=== PATIENT | male | born 1935 | race Caucasian/White ===

== ENCOUNTER 2017-02-20 22:07 | Inpatient (IN) ==
[2017-02-21] MEDS ORDERED: *HR* Morphine 2 MG/ML SYRINGE IVP PRN (03:36)
[2017-02-21] MEDS ORDERED: Acetaminophen 325 MG TABLET PO PRN (03:36)
[2017-02-21] MEDS ORDERED: Naloxone 0.4 MG/ML INJ IVP PRN (03:36)
[2017-02-21] MEDS ORDERED: Ondansetron 4 MG/2 ML VIAL IVP PRN (03:36)
[2017-02-21] MEDS ORDERED: *HR* Heparin 5,000 UNIT/ML VIAL IVP ONE (03:44)
[2017-02-21] MEDS ORDERED: *HR* Heparin 5,000 UNIT/ML VIAL IVP PRN ×2 (03:44)
[2017-02-21] MEDS ORDERED: Heparin 25,000 UNIT/500 ML D5W 25,000 UNIT/500 ML MLS IVC SCH (03:45)
[2017-02-21 04:02] LABS: Albumin 2.6 g/dL (3.5-5.0); Bilirubin,Total 0.6 mg/dL (0.2-1.2); Calcium 8.5 mg/dL (8.6-10.8); Globulin 2.6 g/dL (2.4-3.5); Magnesium 1.9 mg/dL (1.6-2.6); Potassium 4.1 mEq/L (3.5-4.5); Total Protein 5.2 g/dL (6.0-8.3)
[2017-02-21 04:19] LABS: Basophils % 0.4 %; Eosinophils # 0.2 K/mcL (0.0-0.6); Eosinophils % 3.4 %; Hematocrit 33.1 % (37.5-50.1); Hemoglobin 10.5 g/dL (12.9-16.9); Immature Granulocytes % 0.4 % (0-4); Lymphocytes # 1.4 K/mcL (0.6-4.6); Lymphocytes % 25.7 %; Mean Corpuscular HGB Conc 31.7 g/dL (31.6-35.5); Mean Corpuscular Hemoglobin 31.9 pg (28.0-33.3); Mean Corpuscular Volume 100.6 fL (83.0-100.0); Mean Platelet Volume 12.4 fL (9.4-12.4); Monocytes # 0.5 K/mcL (0.0-1.3); Monocytes % 9.7 %; Neutrophils # 3.2 K/mcL (1.6-8.9); Platelet Count 102 K/mcL (140-400); Red Blood Count 3.29 M/mcL (4.19-5.50); Red Cell Distribution Width 13.7 % (11.5-14.5); Segmented Neutrophils % 60.4 %
[2017-02-21 04:22] LABS: INR 1.2; Prothrombin Time 12.7 Seconds (9.4-12.1)
[2017-02-21 04:25] LABS: Activated Partial Thrombo Time 30.5 Seconds (26.0-36.0)
[2017-02-21] MEDS ORDERED: Famotidine 20 MG/2 ML VIAL IVP SCH (06:00)
--- NOTE | 2017-02-21 06:23 | Internal Med History&Physical ---
Date of Encounter: 02/21/17 Time of Encounter: 04:00 Assessment and Plan (1) NSTEMI (non-ST elevated myocardial infarction) Current visit: Yes Status: Acute Non-ST elevation CA Continue Aspirin, Lipitor, IV Heparin as per protocol, nitroglycerin as needed for pain Chest x-ray (done at outside facility) - no acute process EKG - sinus rhythm with no acute ST-T changes Troponin - 9.5, cycle troponin BNP - 350 Cardiology consult - discussed with Dr. Cantrell Cardiac telemetry, labs in a.m., monitor closely (2) Hypertension Current visit: Yes Status: Chronic Essential hypertension, controlled, monitor Continue Lopressor Qualifiers: Hypertension type: essential hypertension Qualified Code(s): I10 - Essential (primary) hypertension (3) DVT prophylaxis Current visit: Yes Status: Acute Patient is on IV heparin for NSTEMI Internal Medicine - H&P: HPI Chief complaint: Chest pain Admitted From: Emergency Dept Plans for Post Hospital Care: Home History of present illness: Mr. Thayer is a 81 year old male with past medical history of hypertension, chronic kidney disease, gout. Patient presents as a transfer from [facility] for chest pain. Examined in the room. Patient is awake and alert. Not in any distress. Able to provide history. is at bedside. Patient states at around 7 AM this evening he developed sudden onset substernal chest pain. Patient states he was at the grocery store at the time. He describes it as chest pressure and tightness. Symptoms lasted for almost 2 hours. He was taken immediately to the ED. EKG did not show any changes initially. Initial troponin was 0.14 and then it has now bumped up to 8.5 and 9.5. No aggravating or alleviating factors. No other associated symptoms. Patient states he did not have some mild shortness of breath. Denies palpitations or vomiting or abdominal pain. No other complaints. At present he states this pain has almost resolved. In the ED he was given to 25 mg aspirin and was also given nitroglycerin sublingual. This is helped his pain. Patient was then transferred here for probable non-STEMI. Patient has now been started on IV heparin protocol. I discussed with the on-call automation qa analyst Dr. Cantrell, patient will be evaluated this morning. CODE STATUS full code. Past Med Surg Social Fam HX - Past Medical History Medical history: hypertension - Past Surgical History Surgical History: cataract, knee replacement - Social History Smoking Status: Never smoker Alcohol use: none Drug use: none - Family History Mother Hx Family Cardiac Disorders: Yes (HTN, HLD) Father Hx Family Cardiac Disorders: Yes (HTN, HLD) Internal Medicine - H&P: Meds Allopurinol [Zyloprim 100 MG] 200 mg PO DAILY 02/21/17 [History] Finasteride [Proscar] 5 mg PO DAILY 02/21/17 [History] Lisinopril-HCTZ 20-12.5 [Prinzide 20-12.5] 1 each PO DAILY 02/21/17 [History] Omeprazole [PriLOSEC] 20 mg PO DAILY 02/21/17 [History] Patiromer Calcium Sorbitex [Veltassa] 8.4 gm PO DAILY 02/21/17 [History] 3 Allergy/AdvReac Type Severity Reaction Status Date / Time No Known Drug Allergies Allergy See Verified 02/21/17 00:46 Comments All Systems PM: A 10-system review of systems was performed and is negative for pertinent findings except as documented above in the HPI. - Constitutional Constitutional: no fatigue, no fever(s), no weakness - EENT Eyes: no blurry vision - Cardiovascular Cardiovascular ROS IM: chest pain, dyspnea, no diaphoresis, no dyspnea on exertion, no edema, no lightheadedness, no orthopnea, no palpitations, no syncope - Respiratory Respiratory: dyspnea, no cough, no hemoptysis, no dyspnea on exertion, no wheezing, no chest congestion - Gastrointestinal Gastrointestinal: no abdominal pain, no cramping, no diarrhea, no heartburn, no hematemesis, no loose stools, no nausea, no vomiting - Genitourinary Genitourinary ROS male: no dysuria - Neurological Neurological ROS: no abnormal gait, no confusion, no dizziness, no loss of vision, no numbness, no tingling - Constitutional Vitals: Temp Pulse Resp BP Pulse Ox 98.3 F 58 16 115/58 96 02/21/17 03:57 02/21/17 03:57 02/21/17 03:57 02/21/17 03:57 02/21/17 03:57 General appearance: Present: cooperative, A&O X 3, pleasant, no acute distress, answers questions appropriately - Head Head exam: Present: atraumatic - Eye Eye exam: Present: EOMI - ENT ENT exam: Present: mucous membranes moist - Respiratory Respiratory exam: Present: CTAB. Absent: accessory muscle use, chest wall tenderness, rales, rhonchi, wheezes, tachypnea - Cardiovascular Cardiovascular exam: Present: RRR, +S1, +S2 - GI/Abdominal GI/Abdominal exam: Present: soft. Absent: distended, firm, guarding, tenderness - Extremities Exam Extremities exam: Present: radial pulses palpable and symmetrical. Absent: calf tenderness, cyanotic, pedal edema - Neurological Exam Neurological exam: Present: alert, oriented X3, no focal deficits. Absent: facial droop, speech deficit Internal Med - H&P Results - Labs CBC & Chem 7: 02/21/17 04:01 02/21/17 02:57 Labs: Short CBC 02/21/17 Range/Units 04:01 WBC 5.4 (4.3-11.1) K/mcL Hgb 10.5 L (12.9-16.9) g/dL Hct 33.1 L (37.5-50.1) % Plt Count 102 L (140-400) K/mcL Neutrophils # 3.2 (1.6-8.9) K/mcL BMP 02/21/17 02:57 Sodium 140 Potassium 4.1 Chloride 112 H Carbon Dioxide 20 BUN 38 H Creatinine 1.78 H Glucose 164 H Calcium 8.5 L Cardiac Enzymes 02/21/17 02/21/17 Range/Units 02:57 04:01 Troponin I 8.54 H* 9.57 H* (0-0.03) ng/mL Liver Function 02/21/17 Range/Units 02:57 Total Bilirubin 0.6 (0.2-1.2) mg/dL AST 28 (5-34) Units/L ALT 16 (0-55) Units/L Alkaline Phosphatase 113 (38-126) Units/L Albumin 2.6 L (3.5-5.0) g/dL
[2017-02-21] MEDS: Aspirin 81 MG TAB.CHEW PO SCH (09:26)
--- NOTE | 2017-02-21 09:33 | Cardiology Consult Note ---
<Manjula Nails - Last Filed: 02/21/17 09:30> Date of Encounter: 02/21/17 Time of Encounter: 08:00 Assessment and Plan (1) NSTEMI (non-ST elevated myocardial infarction) Current Visit: Yes Status: Acute Per cardiology: -Presented to outside facility, initial troponin negative then 0.14 at outside facility. -Troponins at [facility] 8.54, 9.57. -Chest pain on presentation, currently chest pain free. -On asa, statin, beta tez, and heparin drip. -ECG with no acute ischemic changes. -No previous cardiac testing noted. -Will check echocardiogram. -Continue heparin drip. -Nitro as needed for chest pain. -PLan for [facility] tomorrow pending nephrology evaluation and recommendations. -Will continue to monitor. (2) HUSSAIN (acute kidney injury) Current Visit: Yes Status: Acute Per cardiology: -Reports CKD, daughter states baseline creatinine normally around 1.4. -Creatinine at outside facility 2. -Creatinine at [facility] 1.78. -Management per primary service. -Nephrology has been consulted. Discussion w patient/family: The assessment and plan as outlined above was discussed with the patient and/or family members who expressed understanding and agreement. All questions were answered. Thank you for involving us in the care of your patient. Please call with any questions. Discussed and reviewed with . History of Present Illness Consult date: 02/21/17 Requesting physician: Josue Wright Consult reason: NSTEMI Chief complaint: chest pain History of present illness: Mr. Thayer is a 81 year old male with a relevant past medical history of CKD and HTN. Patient reports he was at the grocery store in a wheelchair when he had sudden onset of midsternal chest pain. Patient states "it just hurt." Patient denies aggravating factors. Patient states pain was relieved by nitro when evaluated in ER. Daughter states patient has been experiencing "heartburn" for the last couple of months. Patient denies worsening shortness of breath or worsening fatigue. Patient denies current chest pain. Daughter states normal creatinine is about 1.4 (no old records at [facility] to review). Past Med Surg Social Fam HX - Past Medical History Attestation: Yes The following information was validated with the patient. Source: patient, obtained from family Medical history: hypertension - Past Surgical History Surgical History: cataract, knee replacement - Social History Smoking Status: Never smoker Alcohol use: none Drug use: none - Family History Mother Hx Family Cardiac Disorders: Yes (HTN, HLD) Father Hx Family Cardiac Disorders: Yes (HTN, HLD) Medications and Allergies Allopurinol [Zyloprim 100 MG] 200 mg PO DAILY 02/21/17 [History] Finasteride [Proscar] 5 mg PO DAILY 02/21/17 [History] Lisinopril-HCTZ 20-12.5 [Prinzide 20-12.5] 1 each PO DAILY 02/21/17 [History] Omeprazole [PriLOSEC] 20 mg PO DAILY 02/21/17 [History] Patiromer Calcium Sorbitex [Veltassa] 8.4 gm PO DAILY 02/21/17 [History] 3 Allergy/AdvReac Type Severity Reaction Status Date / Time No Known Drug Allergies Allergy See Verified 02/21/17 00:46 Comments All Systems Review: A 10-system review of systems was performed and is negative for pertinent findings except as documented above in the HPI. - Cardiovascular Cardiovascular: as per HPI, chest pain at rest Physical Examination Vital Signs, Last 4 Hours Temp Pulse Resp BP Pulse Ox 02/21/17 07:26 97.7 F 56 15 129/60 97 General: Conversant, No Apparent Distress HEENT: Atraumatic, Normocephaly, Mucus Membranes Moist Neck: No JVD, Normal carotid pulses Cardiac: Reg Rate and Rhythm, Normal S1 and S2, No Murmur Lungs: Normal Breath Sounds, No Wheeze, Rales, Rhonchi Neuro: Alert and responsive, No focal deficits noted Abdomen: Soft, Non-Tender Skin: No rashes noted on visualized skin Musculoskeletal: No Chest Wall Tenderness Extremities: No Clubbing, No Cyanosis, Normal Pulses, Other (Mild bilateral pedal edema noted, non-pitting. ) Results 02/21/17 04:01 02/21/17 02:57 Lab Results Active Medications Acetaminophen (Tylenol) 650 mg PO Q6HR PRN PRN Reason: Mild Pain (1-3) Stop: 08/23/17 03:37 Aspirin (Aspirin) 81 mg PO DAILY [facility] Stop: 08/23/17 09:01 Last Admin: 02/21/17 09:26 Dose: 81 mg Atorvastatin Calcium (Lipitor) 80 mg PO HS [facility] Stop: 08/23/17 03:46 Last Admin: 02/21/17 04:26 Dose: 80 mg Famotidine (Pepcid) 20 mg IVP Q12HR [facility] Stop: 08/23/17 06:01 Last Admin: 02/21/17 06:03 Dose: 20 mg Heparin Sodium (Porcine) (Heparin) 4,000 unit IVP Q6HR PRN PRN Reason: SEE COMMENTS Stop: 08/23/17 03:45 Heparin Sodium (Porcine) (Heparin) 2,000 unit IVP Q6H PRN PRN Reason: SEE COMMENTS Stop: 08/23/17 03:45 Heparin Sodium/Dextrose (Heparin 25,000 Unit/500 Ml D5w) 25,000 unit in 500 mls @ 19.998 mls/hr IVC .Q24H [facility]; 9.03 UNIT/KG/HR PRN Reason: Protocol Stop: 08/23/17 03:46 Last Admin: 02/21/17 04:21 Dose: 9.03 unit/kg/hr, 19.998 mls/hr Metoprolol Tartrate (Lopressor) 25 mg PO BID [facility] Stop: 08/23/17 09:01 Last Admin: 02/21/17 09:26 Dose: Not Given Morphine Sulfate (Morphine Sulfate) 2 mg IVP Q4HR PRN PRN Reason: Severe Pain (7-10) Stop: 08/23/17 03:37 Naloxone HCl (Narcan) 0.4 mg IVP Q2MIN PRN PRN Reason: Opioid Reversal Stop: 08/23/17 03:37 Ondansetron HCl (Zofran) 4 mg IVP Q8HR PRN PRN Reason: Nausea And Vomiting Stop: 08/23/17 03:37 Laboratory Tests 02/21/17 02/21/17 02/21/17 02:57 02:57 04:01 Hgb 10.5 L Creatinine 1.78 H Troponin I 8.54 H* 02/21/17 04:01 Hgb Creatinine Troponin I 9.57 H* - Imaging and Cardiology Chest Xray: report reviewed - EKG Interpretation EKG results cardiology: personally reviewed (ECG with sinus bradycardia, first degree block, HR 58.), other (Telemetry reviewed with average HR 57, sinus bradycardia. Sinus pauses noted, longest 1.9 seconds. PVCs noted.) Consult Discharge Plan - Plan Referrals: Corrine Jameson MD [Primary Care Provider] - <Jadon Cantrell - Last Filed: 02/21/17 13:10> Date of Encounter: 02/21/17 Time of Encounter: 11:00 Assessment and Plan Discussion w patient/family: The assessment and plan as outlined above was discussed with the patient and/or family members who expressed understanding and agreement. All questions were answered. Thank you for involving us in the care of your patient. Please call with any questions. History of Present Illness History of present illness: Mr. Thayer is a 81 year old male All Systems Review: A 10-system review of systems was performed and is negative for pertinent findings except as documented above in the HPI. Physical Examination Vital Signs, Last 4 Hours Temp Pulse Resp BP Pulse Ox 02/21/17 11:27 97.9 F 59 16 133/57 96 Results 02/21/17 04:01 02/21/17 02:57 Lab Results 02/21/17 02/21/17 02/21/17 02:57 02:57 04:01 WBC 5.4 Hgb 10.5 L Hct 33.1 L Plt Count 102 L INR APTT Sodium 140 Potassium 4.1 Chloride 112 H Carbon Dioxide 20 BUN 38 H Creatinine 1.78 H Glucose 164 H Calcium 8.5 L Magnesium 1.9 Total Bilirubin 0.6 AST 28 ALT 16 Alkaline Phosphatase 113 Troponin I 8.54 H* B-Natriuretic Peptide 02/21/17 02/21/17 02/21/17 04:01 04:01 04:01 WBC Hgb Hct Plt Count INR 1.2 APTT 30.5 Sodium Potassium Chloride Carbon Dioxide BUN Creatinine Glucose Calcium Magnesium Total Bilirubin AST ALT Alkaline Phosphatase Troponin I 9.57 H* B-Natriuretic Peptide 350 H 02/21/17 02/21/17 09:53 09:53 WBC Hgb Hct Plt Count INR APTT 108.8 H D Sodium Potassium Chloride Carbon Dioxide BUN Creatinine Glucose Calcium Magnesium Total Bilirubin AST ALT Alkaline Phosphatase Troponin I 10.38 H* B-Natriuretic Peptide - Attending Attestation Pt seen and examined, chart reviewed independently, essentially agree with findings as documented, my evaluation as follows: IMP/Plan 1. NSTEMI, chest pain resolved, troponin pead at 9.57, on heparin and nitroglycerin, long conversation with pt and daughter about timing of LHC/ possible, would ideally like to wait 18 to 24 hours for rehydration, mucomyst, nephrology eval to maximize renal status, hold cath for now, schedule tomorrow am if remains pain free. Discussed at length with pt and daughter at bedside. Start Brillinta today. 2, Acute on chronic kidney disease, begin gentle rehydration, appreciate nephrology recs, limit dye load as able, hold losartin/hctz 3. Essential hyptertension - controlled on current meds 4. GERD - controlled on PPI 5. Hyperlipidemia, not treated, will repeat fasting lipid profile.
[2017-02-21] MEDS: hydrOXYzine pamoate 25 MG CAPSULE PO SCH ×3 (10:10→23:14)
--- NOTE | 2017-02-21 10:54 | Nephrology Consult Note ---
Date of Encounter: 02/21/17 Time of Encounter: 10:05 Assessment and Plan (1) HUSSAIN (acute kidney injury) Current Visit: Yes Status: Acute HUSSAIN on CKD stage III (reported baseline of 1.2mg/dL as per the pt's niece though his outpt labs are not immediately available to me; he sees an outside entry table operator Dr. Reid). No urine output yet recorded, but I suspect he is non- oliguric. Suspect related to his acute hemodynamic changes perhaps related to his NSTEMI with high trop, which is why he was transferred from [place] in [facility] to here. Nevertheless, he is relatively stable with his volume status (he has chronic LE edema L > R, as per patient) and typically wears stockings, which I'll recommend to be started here. Would recommend checking a renal U/S to be thorough to ensure there is no hydronephrosis. Avoid nephrotoxins as able, though he very likely will need a LHC. Will add gentle IVF, while which I'll carefully monitor his volume status (exam, BNP and serum Na); plus NAC. I reviewed the R/B/I and potential impact that Mucomyst may or may not provide. I mentioned to him that he may experience an HUSSAIN, but with only minimal anemia and stable BPs, I suspect he would be relatively reasonably appropriate to proceed with a LHC. Thank you for consulting the [facility] group. Will follow with you. (2) NSTEMI (non-ST elevated myocardial infarction) Current Visit: Yes Status: Acute (3) History of gout Current Visit: Yes Status: Chronic (4) CKD (chronic kidney disease), stage III Current Visit: Yes Status: Chronic (5) Anemia Current Visit: Yes Status: Acute Qualifiers: Anemia type: unspecified type Qualified Code(s): D64.9 - Anemia, unspecified (6) Hypertension Current Visit: Yes Status: Chronic Qualifiers: Hypertension type: essential hypertension Qualified Code(s): I10 - Essential (primary) hypertension History of Present Illness - Reason for Consult Consult date: 02/21/17 Acute Kidney Injury, Chronic Kidney Disease Requesting physician: Karen Velez - Chief Complaint HUSSAIN on CKD stage III with ACS and high Trop - History of Present Illness Homero Thayer is a very pleasant 81 y/o WM with a pmh of obesity, gout, CKD stage III (followed by the outside entry table operator Dr. Reid in [facility]), and et al who presented as a transfer from [facility] with CP and accelerating trop trend. He said that he is not actively in CP, which improved after nitro was given. He denied use of OTC NSAIDs. Much of his history was supplemented by his niece and the medical record. Of note his baseline renal function labs are not immediately available to me. He says that he was last seen by his entry table operator about 1 month ago and was found to be relatively and reassuringly stable. He has a hx of gout and takes allopuinol but did not report any new / recent flares of gout. He did not affirm N/V/D or abd pain, but was found to have an abd bruise after his "large" dog jumped into his lab a few months ago. Otherwise no major falls recently, not since about 2 years ago when he injured his left foot in a fall in his shower. FHx: + CKD in his brother and niece but no relatives who ever required HD for ESRD. Past Med Surg Social Fam HX - Past Medical History Medical history: hypertension - Past Surgical History Surgical History: cataract, knee replacement - Social History Smoking Status: Never smoker Alcohol use: none Drug use: none - Family History Mother Hx Family Cardiac Disorders: Yes (HTN, HLD) Father Hx Family Cardiac Disorders: Yes (HTN, HLD) Medications and Allergies Allopurinol [Zyloprim 100 MG] 200 mg PO DAILY 02/21/17 [History] Finasteride [Proscar] 5 mg PO DAILY 02/21/17 [History] Lisinopril-HCTZ 20-12.5 [Prinzide 20-12.5] 1 each PO DAILY 02/21/17 [History] Omeprazole [PriLOSEC] 20 mg PO DAILY 02/21/17 [History] Patiromer Calcium Sorbitex [Veltassa] 8.4 gm PO DAILY 02/21/17 [History] 3 Allergy/AdvReac Type Severity Reaction Status Date / Time No Known Drug Allergies Allergy See Verified 02/21/17 00:46 Comments Review of Systems All Systems: reviewed and no additional remarkable complaints except as stated Exam - Vital Signs Vital signs: Initial Vital Signs Temp Pulse Resp BP Pulse Ox 98.4 F 61 16 128/63 95 02/21/17 00:06 02/21/17 00:06 02/21/17 00:06 02/21/17 00:06 02/21/17 00:06 Vital Signs - Last 8 Hours Temp Pulse Resp BP Pulse Ox 02/21/17 07:26 97.7 F 56 15 129/60 97 02/21/17 03:57 98.3 F 58 16 115/58 96 Intake and Output 02/20/17 02/21/17 02/21/17 23:59 07:59 15:59 Other: Weight 110.733 kg Blood Glucose* 98 Patient Weight 02/21/17 23:59 Weight 110.733 kg - General Appearance General appearance: well-developed, well-nourished, appears started age, obese, frail EENT: ATNC, PERRL, mucous membranes moist Neck: supple Cardiology: edema (Left > Right trace to 1+ pretibial pitting edema bilaterally) , regular rate, regular rhythm, normal S1, normal S2 Gastrointestinal: normoactive bowel sounds, no tenderness, no guarding, obese Integumentary: warm and dry, ecchymotic (bruise in healing stages in the RLQ) Neurologic: no focal deficit, no asterixis, alert and oriented x3 Musculoskeletal: no deformities, no erythema Psychiatric: mood/affect appropriate, cooperative Results - Lab Results 02/21/17 04:01 02/21/17 02:57 Most recent lab results Calcium 8.5 mg/dL (8.6-10.8) L 02/21/17 02:57 Magnesium 1.9 mg/dL (1.6-2.6) 02/21/17 02:57 I reviewed the progress notes, labs, meds, vitals, historical imaging. Consult Discharge Plan - Plan Referrals: Corrine Jameson MD [Primary Care Provider] -
[2017-02-21] MEDS: 0.9 % Sodium Chloride 1,000 ML IVC SCH (11:47)
[2017-02-21] MEDS: *HR* Acetylcysteine 20% 600 MG/3 ML ORAL SYRINGE PO SCH ×2 (11:47→23:15)
[2017-02-21] MEDS ORDERED: Perflutren Lipid Microsphere 1.3 ML in 0.9 % Sodium Chloride 8.7 ML IVP ONE (12:37)
[2017-02-21 16:02] LABS: INR 1.2; Prothrombin Time 12.6 Seconds (9.4-12.1)
--- NOTE | 2017-02-21 16:30 | Internal Med Progress Note ---
Date of Encounter: 02/21/17 Time of Encounter: 14:30 - Assessment and plan (1) NSTEMI (non-ST elevated myocardial infarction) Current Visit: Yes Status: Acute Assessment and plan: EKG shows no ST changes. Patient has elevated troponin., Currently at 8.37, decreased from 10 38 earlier this morning. Patient denies chest pain at this time. He denies diaphoresis, shortness of breath or dyspnea, nausea, vomiting. Patient has been seen by cardiology and will have an [facility] in the morning. Patient was on a heparin drip all day and has had bleeding from his urethra. The heparin drip was stopped. I spoke with Dr. Cantrell has no further recommendations. PT is 12.6, INR is 1.2, APTT is 70.0. Urine is collected and pending. (2) Hypertension Current Visit: Yes Status: Chronic Assessment and plan: Blood pressure is well controlled in the inpatient setting. Continue home medications. Continue to monitor vital signs frequently. Qualifiers: Hypertension type: essential hypertension Qualified Code(s): I10 - Essential (primary) hypertension (3) DVT prophylaxis Current Visit: Yes Status: Acute Assessment and plan: Patient was on a heparin drip, as been stopped due to dyana hematuria. Labs are still pending. We will place MARCELINO vincent currently. (4) HUSSAIN (acute kidney injury) Current Visit: Yes Status: Acute Assessment and plan: Patient sees certified medical dosimetrist in [facility]. Family member at bedside states that creatinine is usually 1.2. Is 1.78 here. Patient has been seen by nephrology, per the recommendation of cardiology. Renal ultrasound is recommended to ensure there is no hydronephrosis, and nephrotoxins, and nephrology has ordered gentle IV hydration, nephrology will follow him closely monitor volume status. (5) History of gout Current Visit: Yes Status: Chronic (6) CKD (chronic kidney disease), stage III Current Visit: Yes Status: Chronic Assessment and plan: Chronic. Avoid nephrotoxins. Nephrology following. Retroperitoneal ultrasound ordered to assess for hydronephrosis due to rising creatinine. (7) Anemia Current Visit: Yes Status: Acute Assessment and plan: Hemoglobin is 10.5. Unsure of patient's normal baseline hemoglobin. We are attempting to retrieve records from [facility]. Most likely due to chronic disease. Heparin drip has been stopped. We will continue to monitor and prepared to transfuse if hemoglobin less than 8. Qualifiers: Anemia type: unspecified type Qualified Code(s): D64.9 - Anemia, unspecified - Time Spent With Patient less than 15 minutes - Subjective Interval history: Patient was seen and assessed at 1430. There were multiple family members in the room. All questions were answered. Patient denies chest pain, states that he has never had chest pain, however the patient was transferred from [facility] for substernal chest pain. Troponin has elevated significantly over the course of his stay. 10 AM, troponin was 10.38. Currently troponin is 8.37. Patient's EKG shows no ST changes. Patient has been on a heparin drip since this morning. He has been seen by cardiology and is scheduled to have an C in the morning. At approximately 1515, I was notified by the nurse that he had bleeding from his urethra. Heparin drip was stopped, I spoke with Dr. Cantrell who is on the unit seeing another patient. Heparin has been stopped, no further recommendations from cardiology. Coags were drawn and a urine was sent. PT is 12.6, INR 1.2, APTT 70.0. Urine is still pending. - Constitutional Vitals: Temp Pulse Resp BP Pulse Ox 98.3 F 59 17 144/58 98 02/21/17 15:37 02/21/17 15:37 02/21/17 15:37 02/21/17 15:37 02/21/17 15:37 General appearance: Present: cooperative, A&O X 3, pleasant, no acute distress, answers questions appropriately - Head Head exam: Present: normal inspection - Eye Eye exam: Present: normal appearance, conjuntiva pink, sclera anicteric Pupils: Present: PERRL - Neck Neck exam general surgery: Present: supple, trachea midline. Absent: lymphadenopathy, tenderness - Respiratory Respiratory exam: Present: CTAB. Absent: accessory muscle use, chest wall tenderness, rales, respiratory distress, rhonchi, wheezes - Cardiovascular Cardiovascular exam: Present: RRR, +S1, +S2. Absent: diastolic murmur, gallop, rubs, systolic murmur - GI/Abdominal GI/Abdominal exam: Present: normal bowel sounds, soft, no peritoneal signs. Absent: distended, guarding, hepatomegaly, tenderness - Extremities Exam Extremities exam: Present: normal capillary refill, warm, radial pulses palpable and symmetrical. Absent: calf tenderness, cyanotic, pedal edema, tenderness - Neurological Exam Neurological exam: Present: alert, oriented X3, no focal deficits. Absent: facial droop, speech deficit - Skin Skin exam: Present: dry, intact, normal color, warm. Absent: rash Internal Medicine: Result - Labs CBC & Chem 7: 02/21/17 04:01 02/21/17 02:57 Labs: Short CBC 02/21/17 Range/Units 04:01 WBC 5.4 (4.3-11.1) K/mcL Hgb 10.5 L (12.9-16.9) g/dL Hct 33.1 L (37.5-50.1) % Plt Count 102 L (140-400) K/mcL Neutrophils # 3.2 (1.6-8.9) K/mcL BMP 02/21/17 02:57 Sodium 140 Potassium 4.1 Chloride 112 H Carbon Dioxide 20 BUN 38 H Creatinine 1.78 H Glucose 164 H Calcium 8.5 L Cardiac Enzymes 02/21/17 02/21/17 02/21/17 Range/Units 02:57 04:01 09:53 Troponin I 8.54 H* 9.57 H* 10.38 H* (0-0.03) ng/mL 02/21/17 Range/Units 15:47 Troponin I 8.37 H* (0-0.03) ng/mL Liver Function 02/21/17 Range/Units 02:57 Total Bilirubin 0.6 (0.2-1.2) mg/dL AST 28 (5-34) Units/L ALT 16 (0-55) Units/L Alkaline Phosphatase 113 (38-126) Units/L Albumin 2.6 L (3.5-5.0) g/dL - ABG Interpretation ABG results: PT/INR, D-dimer PT 12.6 Seconds (9.4-12.1) H 02/21/17 15:47 Consult Discharge Plan - Plan Referrals: Corrine Jameson MD [Primary Care Provider] -
[2017-02-21 17:18] LABS: Bilirubin,Urine Negative (Negative); Blood,Urine Large (Negative); Clarity,Urine Cloudy (Clear); Color,Urine Yellow (Yellow); Glucose,Urine (UA) Normal (Normal); Ketones,Urine Negative (Negative); Leukocyte Esterase,Urine Negative (Negative); Nitrite,Urine Negative (Negative); Protein,Urine Trace mg/dL (Neg-Trace); Specific Gravity,Urine 1.009 (1.010-1.025); Urobilinogen,Urine Normal (Normal)
[2017-02-21 17:21] LABS: Bacteria,Urine None Seen per hpf (None-Few); Hyaline Casts,Urine None Seen per lpf (None-Few); RBC,Urine TNTC per hpf (0-3); Squamous Epithelial Cell,Urine Few per lpf (None-Few); WBC,Urine 0-3 per hpf (0-3)
[2017-02-21] MEDS: Famotidine 20 MG/2 ML VIAL IVP SCH (17:48)
[2017-02-21 19:23] LABS: Hematocrit 34.8 % (37.5-50.1); Hemoglobin 10.8 g/dL (12.9-16.9)
--- NOTE | 2017-02-21 19:29 | Electrocardiograph Report ---
[place] [id number] Test Date: 2017-02-21 Pat Name: Homero Thayer Department: [id number] Room: 3B46 Gender: M [place] [employer] Group Leader: JOHANNA : 1935 Requested By: Josue Wright Order Number: [id number] Reading MD: Julio Petit MD Measurements Intervals Lindsay Rate: 58 P: 31 PA: 233 QRS: -19 QRSD: 126 T: 11 QT: 453 QTc: 449 Interpretive Statements SINUS BRADYCARDIA WITH FIRST DEGREE AV BLOCK RIGHT BUNDLE BRANCH BLOCK Electronically Signed On 02-21-2017 19:28:15 EDT by Julio Petit MD
[2017-02-22 02:14] LABS: Hematocrit 33.1 % (37.5-50.1); Hemoglobin 10.3 g/dL (12.9-16.9)
[2017-02-22 05:26] LABS: Calcium 8.5 mg/dL (8.6-10.8); Magnesium 1.9 mg/dL (1.6-2.6); Phosphorous 2.7 mg/dL (2.3-4.7); Potassium 4.3 mEq/L (3.5-4.5)
[2017-02-22] MEDS: Famotidine 20 MG/2 ML VIAL IVP SCH ×2 (06:12→17:22)
[2017-02-22] MEDS: *HR* Acetylcysteine 20% 600 MG/3 ML ORAL SYRINGE PO SCH ×2 (09:01→21:07)
[2017-02-22] MEDS: hydrOXYzine pamoate 25 MG CAPSULE PO SCH ×3 (09:02→21:03)
[2017-02-22] MEDS: Aspirin 81 MG TAB.CHEW PO SCH (09:02)
[2017-02-22] MEDS: 0.9 % Sodium Chloride 1,000 ML IVC SCH ×2 (09:04→21:03)
--- NOTE | 2017-02-22 09:42 | Nephrology Progress Note ---
Date of Encounter: 02/22/17 Time of Encounter: 09:15 - Assessment and Plan (1) HUSSAIN (acute kidney injury) Current Visit: Yes Status: Acute HUSSAIN, non-oliguric, on CKD stage III. SCr trending better with gentle rates of volume expansion of 0.9% saline at 50mL/hr in anticipation of an upcoming LHC. With his renal function trending better, he most likely would be able to tolerate contrast exposure with a relatively low risk for MARY. NAC has been added empirically with today being day 2 of 3. Would continue to hold the ROSA/ HCTZ d/t the HUSSAIN, but it this continues to correct then would be reasonable to restart soon. Recommend ongoing strict I/Os, daily weights, renal dosing. Of note, he does not need Veltassa presently. Though I do not have the pt's outside labs and nephrology progress notes immediately available to me, I would suppose that he has a hx of hyperkalemia, which must have led to the Veltassa. This Rx is not on the inpatient formulary and not needed while monitoring his serum K+ on a routine basis during this hospitalization. (2) NSTEMI (non-ST elevated myocardial infarction) Current Visit: Yes Status: Acute As per primary. Cardiology following. (3) History of gout Current Visit: Yes Status: Chronic Will add uric acid to labs (4) CKD (chronic kidney disease), stage III Current Visit: Yes Status: Chronic See above. Hx of CKD stage III. His primary shipboard intelligence analyst is Dr. Reid. (5) Anemia Current Visit: Yes Status: Acute Will monitor. Goal Hgb in the setting of CKD is 10-11. Qualifiers: Anemia type: unspecified type Qualified Code(s): D64.9 - Anemia, unspecified (6) Hypertension Current Visit: Yes Status: Chronic Holding the lisinopril / HCTZ d/t the HUSSAIN. Qualifiers: Hypertension type: essential hypertension Qualified Code(s): I10 - Essential (primary) hypertension Subjective Principal diagnosis: HUSSAIN on CKD stage III, ACS with upcoming LHC Interval history: Pt was s/e earlier this A.M. with his floor RN present in the exam room. He said that he has tolerated the taste of the oral Mucomyst without N/V/D. He actually has chronic constipation, he reported (which could be exacerbated by Veltassa of note). He has been NPO today for an upcoming [facility]. He did not affirm any worsening of shortness of breath. Objective - Vital Signs Vital signs: Vital Signs Temp Pulse Resp BP Pulse Ox 02/22/17 07:00 97.9 F 46 16 127/61 96 02/22/17 04:08 98.0 F 51 16 114/59 97 02/21/17 23:52 97.9 F 46 15 127/59 97 02/21/17 19:00 98.2 F 58 16 139/69 95 02/21/17 15:37 98.3 F 59 17 144/58 98 02/21/17 11:27 97.9 F 59 16 133/57 96 Intake and Output 02/21/17 02/22/17 02/22/17 23:59 07:59 15:59 Intake Total 1000 / 1000 Output Total 450 / 450 350 / 350 Balance -450 / -450 650 / 650 Intake: IV Fluids 1000 / 1000 0.9 % Sodium Chloride 1,000 ML 1000 / 1000 @ 50 mls/hr IVC .Q20H OANH Rx#: [id number] Output: Urine 450 / 450 350 / 350 Other: Meal NPO for breakfast. Weight 105.46 kg Patient Weight 02/22/17 23:59 Weight 105.46 kg - General Appearance General appearance: Present: well-developed, well-nourished, appears started age , obese EENT: Present: ATNC, PERRL, mucous membranes moist Neck: Present: supple Respiratory: Present: clear Cardiology: Present: edema (chronic LE edema, which was the same as yesterda with mostly nonpitting pretibial edema b/l), regular rate, regular rhythm, normal S1, normal S2 Gastrointestinal: Present: normoactive bowel sounds, no tenderness, no guarding , obese Integumentary: Present: no rash, warm and dry Neurologic: Present: no focal deficit, no asterixis, alert and oriented x3 Musculoskeletal: Present: no deformities, no erythema, no cyanosis Psychiatric: Present: mood/affect appropriate, cooperative - Lab 02/22/17 01:56 02/22/17 03:55 Most recent lab results Calcium 8.5 mg/dL (8.6-10.8) L 02/22/17 03:55 Phosphorus 2.7 mg/dL (2.3-4.7) 02/22/17 03:55 Magnesium 1.9 mg/dL (1.6-2.6) 02/22/17 03:55 Consult Discharge Plan - Plan Referrals: Corrine Jameson MD [Primary Care Provider] -
--- NOTE | 2017-02-22 10:40 | Event Note ---
Date of Encounter: 02/22/17 Time of Encounter: 09:00 - Cardiology Event Note Patient with NSTEMI on presentation. Had been on heparin drip, however had one episode of small amount of hematuria and heparin drip was stopped. Hemoglobin stable. Of note, also with HUSSAIN on admission, nephrology following. Per Neohrology notes, resonable to proceed with LHC today. Renal function mildly improved today. Patient denies chest pain overnight. Echo with LVEF 55%, severe noted with aortic valve area of 0.87cm2. PLan for diagnostic LHC today due to possible need for surgical intervention for aortic valve. Discussed echocardiogram findings and possible need for surgery with patient and daughter. Discussed risk versus benefits of LHC with patient and family including , [place], CVA, bleeding, infection, and MARY. Patient and daughter state understanding and agreeable to proceed. Further recommendations pending [facility]. , interventionalist, updated on renal function, single episode of hematuria, and aortic stenosis. Further recommendations pending [facility].
[2017-02-22] MEDS ORDERED: 0.9 % Sodium Chloride 1,000 ML ONE ×2 (11:48→11:49)
[2017-02-22] MEDS ORDERED: Nitroglycerin 1,000 MCG/10 ML VIAL IV ONE (11:48)
[2017-02-22] MEDS ORDERED: Heparin 1,000 UNITS/500 mL NS 500 ML ONE (11:48)
[2017-02-22] MEDS ORDERED: *HR* Heparin 10,000 UNIT/10 ML VIAL ONE (11:48)
[2017-02-22] MEDS ORDERED: Verapamil 5 MG/2 ML VIAL ONE (11:48)
[2017-02-22] MEDS ORDERED: *HR* FentaNYL (PF) 100 MCG/2 ML VIAL ONE (12:08)
[2017-02-22] MEDS ORDERED: *HR* Midazolam HCl 2 MG/2 ML VIAL ONE (12:08)
[2017-02-22] MEDS ORDERED: Tirofiban 12.5 MG/250ML 12.5 MG/250 ML BAG ONE (12:53)
[2017-02-22] MEDS ORDERED: Tirofiban 12.5 MG/250ML 12.5 MG/250 ML BAG IVC SCH (13:15)
[2017-02-22] MEDS ORDERED: *HR* Atropine Sulfate 1 MG/10 ML SYRINGE ONE (16:24)
--- NOTE | 2017-02-22 20:00 | Internal Med Progress Note ---
Date of Encounter: 02/22/17 Time of Encounter: 14:30 - Assessment and plan (1) NSTEMI (non-ST elevated myocardial infarction) Current Visit: Yes Status: Acute Assessment and plan: Currently denies CP/SOB, N/V, diaphoresis, numbness/tingling. LHC planned for tomorrow. Heparin stopped do to gross hematuria. (2) HUSSAIN (acute kidney injury) Current Visit: Yes Status: Acute Assessment and plan: Nephrology following, giving judicious IV hydration. (3) CKD (chronic kidney disease), stage III Current Visit: Yes Status: Chronic Assessment and plan: Renally dose medications and avoid nephrotoxins. Nephrology following. Follow- up renal ultrasound, BMP - Subjective Interval history: Denies chest pain at the moment. No hematuria. LHC to be done today. - Constitutional Vitals: Temp Pulse Resp BP Pulse Ox 97.7 F 47 16 138/62 98 02/22/17 14:50 02/22/17 19:22 02/22/17 19:22 02/22/17 19:22 02/22/17 19:22 General appearance: Present: cooperative, A&O X 3, pleasant, no acute distress, answers questions appropriately - Respiratory Respiratory exam: Present: CTAB. Absent: accessory muscle use, rales, rhonchi, wheezes - Cardiovascular Cardiovascular exam: Present: RRR, +S1, +S2. Absent: diastolic murmur, gallop, rubs, systolic murmur Internal Medicine: Result - Labs CBC & Chem 7: 02/22/17 01:56 02/22/17 03:55 Labs: Short CBC 02/22/17 Range/Units 01:56 Hgb 10.3 L (12.9-16.9) g/dL Hct 33.1 L (37.5-50.1) % BMP 02/22/17 03:55 Sodium 143 Potassium 4.3 Chloride 114 H Carbon Dioxide 23 BUN 34 H Creatinine 1.68 H Glucose 88 Calcium 8.5 L - ABG Interpretation ABG results: PT/INR, D-dimer PT 12.6 Seconds (9.4-12.1) H 02/21/17 15:47 - Impressions Impressions Echocardiogram 02/21/17 09:42 Impressions: Normal left ventricular size and systolic function. LVEF 65%. Mild concentric hypertrophy of the left ventricle. Trace aortic regurgitation. Mild mitral regurgitation. Mild tricuspid regurgitation. Severe aortic stenosis. NATASHA .87 cm2 Left Ventricular Wall Motion: Rest Echo Findings All wall segments showed normal motion. Findings: Study Quality * Technically adequate exam. Left Ventricle * LVEF 55%. * Mild concentric left ventricular hypertrophy. * Indeterminate diastolic function. * Definity used due to difficulty identifying endocardium Right Ventricle * Normal right ventricular structure and function. Left Atrium * Normal left atrial size. Right Atrium * Normal right atrial size. Aortic Valve * Trileaflet aortic valve. * Trace aortic regurgitation. * Severe aortic stenosis. * Peak and mean gradients are 189 8 mmHg, respectively. * Moderately sclerotic aortic valve leaflets. * Mildly calcified aortic valve leaflets. * Aortic valve leaflets are restricted. * The estimated aortic valve area was approximately 0.88 cm2. Mitral Valve * Normal mitral valve structure and function. * Mild mitral regurgitation. Tricuspid Valve * Mild tricuspid regurgitation. Pulmonic Valve * Pulmonic valve is not well visualized. Aorta * Normally sized aortic root. Pericardium * The pericardium appears normal. Consult Discharge Plan - Plan Referrals: Corrine Jameson MD [Primary Care Provider] -
[2017-02-23 05:28] LABS: Basophils % 0.3 %; Immature Granulocytes % 0.2 % (0-4)
[2017-02-23 05:29] LABS: Eosinophils # 0.2 K/mcL (0.0-0.6); Eosinophils % 3.9 %; Hematocrit 33.4 % (37.5-50.1); Hemoglobin 10.2 g/dL (12.9-16.9); Immature Platelets 10.9 % (1.1-6.1); Lymphocytes % 16.5 %; Mean Corpuscular HGB Conc 30.5 g/dL (31.6-35.5); Mean Corpuscular Volume 101.5 fL (83.0-100.0); Mean Platelet Volume 12.4 fL (9.4-12.4); Monocytes # 0.7 K/mcL (0.0-1.3); Monocytes % 11.3 %; Neutrophils # 4.2 K/mcL (1.6-8.9); Platelet Count 103 K/mcL (140-400); Red Blood Count 3.29 M/mcL (4.19-5.50); Red Cell Distribution Width 13.8 % (11.5-14.5); Segmented Neutrophils % 67.8 %
[2017-02-23 05:58] LABS: Calcium 8.4 mg/dL (8.6-10.8); Potassium 4.8 mEq/L (3.5-4.5)
[2017-02-23] MEDS: Famotidine 20 MG/2 ML VIAL IVP SCH (06:02)
[2017-02-23] MEDS: Aspirin 81 MG TAB.CHEW PO SCH (07:54)
[2017-02-23] MEDS: hydrOXYzine pamoate 25 MG CAPSULE PO SCH (07:54)
[2017-02-23] MEDS: *HR* Acetylcysteine 20% 600 MG/3 ML ORAL SYRINGE PO SCH (08:22)
--- NOTE | 2017-02-23 08:33 | Nephrology Progress Note ---
Date of Encounter: 02/23/17 Time of Encounter: 08:30 - Assessment and Plan (1) HUSSAIN (acute kidney injury) Current Visit: Yes Status: Acute Kidney function stable-Scr 1.68, GFR 39 Renal ultrasound being completed now-awaiting results Stop IV fluids Continue strict I/Os 600ml UOP yesterday Continue to hold the ROSA/HCTZ (2) CKD (chronic kidney disease), stage III Current Visit: Yes Status: Chronic Primary phone screener is Dr Reid Baseline unknown but daughter believes patient's Scr is normally 1.2 Avoid nephrotoxins if possible (3) NSTEMI (non-ST elevated myocardial infarction) Current Visit: Yes Status: Acute per cardiology team Subjective Principal diagnosis: HUSSAIN on CKD stage III, ACS with upcoming [facility] Interval history: Patient seen and examined. Preparing to go for renal ultrasound. Objective - Vital Signs Vital signs: Vital Signs Temp Pulse Pulse Resp BP Pulse Ox 02/23/17 07:03 98.2 F 51 16 123/59 97 02/23/17 04:15 98.2 F 51 14 120/65 98 02/23/17 00:33 98.4 F 45 16 110/52 98 02/22/17 19:22 47 16 138/62 98 02/22/17 17:17 48 48 16 136/57 98 02/22/17 17:05 50 16 141/64 98 02/22/17 17:01 49 16 16 147/62 98 02/22/17 16:56 52 52 16 141/61 98 02/22/17 16:51 52 52 16 141/61 98 02/22/17 16:46 52 52 16 149/66 99 02/22/17 16:43 57 50 16 146/64 02/22/17 16:20 46 46 16 133/58 99 02/22/17 15:20 50 16 147/65 98 02/22/17 15:05 46 02/22/17 15:00 52 52 16 141/61 98 02/22/17 14:50 97.7 F 49 49 16 154/67 99 02/22/17 14:20 48 48 16 137/66 99 02/22/17 14:15 49 02/22/17 14:05 49 16 142/68 99 02/22/17 13:50 49 16 145/65 99 02/22/17 13:35 48 16 139/61 98 02/22/17 13:34 49 16 137/59 98 02/22/17 13:25 50 50 16 142/67 100 02/22/17 13:23 97.7 F 51 16 142/92 99 02/22/17 13:00 49 02/22/17 11:46 98.1 F 49 16 143/66 97 Intake and Output 02/22/17 02/23/17 02/23/17 23:59 07:59 15:59 Intake Total 1320 / 1320 200 / 200 600 / 600 Output Total 250 / 250 350 / 350 Balance 1070 / 1070 -150 / -150 600 / 600 Intake: IV Fluids 1000 / 1000 0.9 % Sodium Chloride 1,000 ML 1000 / 1000 @ 50 mls/hr IVC .Q20H OANH Rx#: [id number] Oral 320 / 320 200 / 200 600 / 600 Output: Urine 250 / 250 350 / 350 Other: Blood Glucose* 72 102 - General Appearance General appearance: Present: well-developed, well-nourished, obese EENT: Present: ATNC, mucous membranes moist, hearing intact, vision intact Neck: Present: supple Respiratory: Present: clear Cardiology: Present: no edema, normal S1, normal S2 Gastrointestinal: Present: no tenderness, no guarding, obese Integumentary: Present: warm and dry Neurologic: Present: alert and oriented x3 Psychiatric: Present: mood/affect appropriate, cooperative - Lab 02/23/17 05:15 02/23/17 05:15 Most recent lab results Calcium 8.4 mg/dL (8.6-10.8) L 02/23/17 05:15 Phosphorus 2.7 mg/dL (2.3-4.7) 02/22/17 03:55 Magnesium 1.9 mg/dL (1.6-2.6) 02/22/17 03:55 - VTE Documentation of Mechanical Device: Graduated compression elastic hosiery Consult Discharge Plan - Plan Referrals: Corrine Jameson MD [Primary Care Provider] -
[2017-02-23 11:17] VITALS: BP 130/62
--- NOTE | 2017-02-23 11:55 | Invasive Diagnostic Lab Proc ---
Name: Homero Thayer Date of Study: 02/22/2017 Date: 1935 Ht: 63.0in Medical Record#: [id number] Age: 81 Wt: 231.49lb Gender: Male BSA: 2.06 Order #: [id number] BMI: 41.02 Physicians Procedure Physician: Julio Petit MD, [facility] Referring MD: Referring MD: Staff Name Position Time In Donna Eastman RN Nurse 12:13 PM Emi Keita RT (R) Monitor 12:13 PM Steven Curry RT (R) Scrub 12:13 PM Ana Montez RN Instrument Tech 12:14 PM Indications Indication Non-Stemi Procedures Performed Procedure L HRT ARTERY/VENTRICLE ANGIO PRQ CARD BM STENT W/ANGIO 1 VSL Pre-Procedure Checklist Informed consent is complete signed and on chart. H&P is on chart. ID band is on and ID verified with patient. Patient NPO for procedure The procedure was described for the patient and questions were answered. ECG is on chart. Plan of Care Patient will tolerate the procedure without complications. Adequate level of comfort will be maintained. Hemodynamics will remain stable Patient will recover from procedure without complications. Respiratory function will be maintained. Cardiac rhythm will remain stable. Patient temperature will be maintained. Patient and/or family have verbalized understanding of the procedure. Patient Education Allergies NKDA No Known Drug Allergies Vital Signs Time BP (mmHg) HR (bpm) O2 Sat. RR (bpm) LOC 12:20 PM / % 4 = Oriented but drowsy 12:20 PM / % 4 = Oriented but drowsy 12:35 PM / % 4 = Oriented but drowsy 12:10 PM 151 / 70 52 98 % 12:14 PM 128 / 61 48 97 % 26 12:19 PM 113 / 51 45 96 % 10 12:24 PM 111 / 48 45 96 % 11 12:30 PM 120 / 55 45 98 % 17 12:35 PM 129 / 61 53 98 % 18 12:39 PM 133 / 49 47 98 % 23 12:45 PM 129 / 59 46 98 % 13 12:49 PM 130 / 54 48 98 % 17 12:55 PM 145 / 65 50 98 % 16 01:00 PM 136 / 68 54 97 % 13 Procedural Medications Time Medication Dose Units Method Given By 12:08 PM Oxygen 2 L/min nasal cannula Ana Montez RN 12:10 PM Versed 2 mg Intravenous Ana Montez RN 12:10 PM Fentanyl 50 mcg Intravenous Ana Montez RN 12:27 PM Lidocaine 2% 20 ml Subcutaneous Julio Petit MD, [facility] 12:42 PM Heparin 4000 units Intravenous Ana Montez RN 12:55 PM Nitroglycerin 200 mcg Intracoronary Julio Petit MD 12:55 PM Aggrastat Bolus: 54 ml Intravenous Ana Montez RN 12:56 PM Aggrastat 12.5mg/250ml 9.4 ml Intravenous Ana Montez RN 01:07 PM Plavix 600 mg Orally Ana Montez RN Janett Score Preprocedure Postprocedure Activity 2- Moves 4 extremities sustained head lift Activity 2- Moves 4 extremities sustained head lift Circulation 2- SBP +/= 20 points of pre-anesthetic level Circulation 2- SBP +/= 20 points of pre-anesthetic level Consciousness 2- Awake and alert oriented x 3 Consciousness 2- Awake and alert oriented x 3 O2 Saturation 2- Able to maintain O2 satruation of 92% on room air O2 Saturation 2- Able to maintain O2 satruation of 92% on room air Respiratory 2- Able to deep breathe and cough well Respiratory 2- Able to deep breathe and cough well Total Score 10 Total Score 10 Contrast Agent: Isovue Diagnostic Contrast: 85 ml Total Contrast: 85 ml Fluoro Dose: 527 mGy Activated Clotting Time Time Seconds to Clot 12:56 PM 248 Procedure Log Time Note Enter By 12:05 PM Steven Curry RT (R) Position: Scrub Time in: 12: 12:05 PM Ana Montez RN Position: Instrument Tech Time in: 12: 12:05 PM Pt arrived to receiver/laborer 2 at 12:05 12:05 PM Donna Eastman RN Position: Nurse Time in: 12:05 12:05 PM Emi Keita RT (R) Position: Monitor Time in: 12:05 12:06 PM Physician arrived 12:06 12:07 PM Kee and kelton completed 12:07 PM Sign in performed according to hospital policy. dspell 12:08 PM CathStat 12:08 PM Procedure start 12:08 dspell 12:08 PM Vitals capture started with the following parameters, Patient=Adult, Interval=5 min, Initial Jdoeicef=292 mmHg, Deflation Rate=5 mmHg, Cuff placed on Left Arm 12:08 PM Time: 12:08 Oxygen on at 2 L/min per nasal cannula by Ana Montez RN [facility] 12:09 PM Case Start 12:10 PM Time: 12:10 Versed 2 mg Intravenous Given by Ana Montez RN [facility] 12:10 PM HR=52 bpm, UGFX=886/70 mmhg, SpO2=98.0 % 12:10 PM Time: 12:10 Fentanyl 50 mcg Intravenous Given by Ana Montez RN [facility] 12:14 PM Patient charges- Angio tray pack, Navilyst 3mm J, Pulse Oximetry and ACIST tubing and transducer [facility] 12:14 PM IV Supplies used: J loop Angio Cath. [facility] 12:14 PM Case Delayed No [facility] 12: PM Hair removed from procedure site in procedure lab using clippers. Bilateral groin prepped with Chloraprep by Emerson Dela Cruz RN, safety strap applied then patient was draped. Skin intact. [facility] 12:14 PM HR=48 bpm, YLUH=240/61 mmhg, SpO2=97.0 %, Resp=26 B/min 12:19 PM Pressure channel 3 zeroed. 12:19 PM Pressure channel 3 zeroed. 12:19 PM HR=45 bpm, DTAS=956/51 mmhg, SpO2=96.0 %, Resp=10 B/min, Comment=S[place] SHONNA 12:20 PM Time: 12:20 Patient comfortable and pain free: Yes [facility] : PM Time: 12:20LOC: 4 = Oriented but drowsy [facility] 12:20 PM Clinical Presentation: Non-STEMI [facility] 12:24 PM HR=45 bpm, WTOP=887/48 mmhg, SpO2=96.0 %, Resp=11 B/min, Comment=S[place] SHONNA 12: PM Time out performed according to hospital policy [facility]: PM Time: 12: 20 ml Lidocaine 2% to right groin Subcutaneous Given by Julio Petit MD, [facility] 12: PM Access obtained by percutaneous puncture. 5Fr 10cm Terumo Conley sheath placed in right Femoral artery. [id number] dspellman 12:28 PM 5Fr FL 4 catheter inserted over the wire [facility] dspellman 12:28 PM 0.035 145cm Navilyst 3mmJ wire [id number] dspellman 12:29 PM LCA angiography performed in multiple views. dspellman 12:29 PM Recorded Pressure: Ao, HR=45, Condition=Condition 1 (Aorta) Ao 122/49/74 12:30 PM HR=45 bpm, IMVV=349/55 mmhg, SpO2=98.0 %, Resp=17 B/min, Comment=SIN[place] SHONNA 12:30 PM Recorded Pressure: Ao, HR=44, Condition=Condition 1 (Aorta) Ao 105/50/71 12:32 PM Catheter removed dspellman 12:32 PM 5Fr FR 4 [facility] 12:32 PM RCA angiography performed in multiple views. dspellman 12:35 PM HR=53 bpm, TLOB=777/61 mmhg, SpO2=98.0 %, Resp=18 B/min 12:35 PM Time: 12:20 Patient comfortable and pain free: Yes dspellman 12:35 PM Catheter removed [place] 12:35 PM 5Fr Pigtail catheter inserted over the wire [facility] 12:35 PM Time: 12:20LOC: 4 = Oriented but drowsy dspellman 12:35 PM Catheter selectively placed in left ventricle on 2nd attempt to cross. dspellman 12:35 PM Bolus angiogram of left Ventricle complete: 10 ml/sec for a total of 30 mls [place] 12:36 PM Pressure channel 3 zero failed. 12:36 PM Recorded Pressure: LV, HR=49, Condition=Condition 1 (Left Ventricle) LV 124/5/21 12:36 PM Recorded Pressure: LV, Ao, HR=56, Condition=Condition 1 (Left Ventricle) LV 126/0/16, (Aorta) Ao 114/36/63 12:38 PM Catheter removed dspellman 12:38 PM pressures recorded, no contrast injected dspellman 12:39 PM HR=47 bpm, LQWO=874/49 mmhg, SpO2=98.0 %, Resp=23 B/min, Comment=S[place] SHONNA 12:39 PM Coronary Dominance: right dspellman 12:39 PM Lesion found in Proximal Circumflex. Pre Stenosis: 80 Pre FRANDY Flow: dspellman 12:40 PM Lesion found in Mid RCA. Pre Stenosis: 50 Pre FRANDY Flow: dspell 12:40 PM PCI Status Urgent dspell 12:40 PM PCI Indication: PCI for high risk Non-STEMI or unstable angina dspell 12:40 PM PCI lesion in Proximal Circumflex. dspell 12:40 PM Sheath exchanged for a 6 Fr 11 cm Cordis Ghazal sheath [id number] dspell 12:41 PM .[address] [place] 190cm guide wire across target lesion- successful. reused? No dspell 12:41 PM 6Fr CLS 3.5 Runway guide catheter was used to cannulate the PCI vessel successfully. reused? No ell 12:41 PM Inflation device was opened. ell 12:42 PM Time: 12:42 Heparin 4000 units Intravenous Given by Ana Montez RN dspell 12:45 PM HR=46 bpm, MFFR=808/59 mmhg, SpO2=98.0 %, Resp=13 B/min, Comment=S[place] SHONNA 12:45 PM 2.5 mm x 8 mm Emerge Monorail balloon across target lesion- successful. reused? No ell 12:45 PM Recorded Pressure: Ao, HR=46, Condition=Condition 1 (Aorta) Ao 109/39/63 12:46 PM Balloon inflated @ 8 harika for 15 seconds dspell 12:47 PM Balloon catheter removed intact. dspell 12:48 PM 3.5mm x 16mm Rebel [employer] bare metal stent across target lesion- successful Lot #[id number] dspell 12:49 PM HR=48 bpm, JMMY=461/54 mmhg, SpO2=98.0 %, Resp=17 B/min, Comment=SIN[place] SHONNA 12:50 PM Time: 12:35 Patient comfortable and pain free: Yes dspell 12:50 PM Stent deployed @ 11 harika for 25 seconds dspell 12:50 PM Time: 12:35LOC: 4 = Oriented but drowsy dspell 12:50 PM Stent delivery system removed intact. dspell 12:51 PM 3.5 mm x 8mm NC Emerge balloon across target lesion- successful. reused? No dspell 12:51 PM ACT drawn dspell 12:53 PM Recorded Pressure: Ao, HR=50, Condition=Condition 1 (Aorta) Ao 128/47/76 12:53 PM Balloon inflated @ 16 harika for 18 seconds dspell 12:54 PM Balloon inflated @ 18 harika for 20 seconds dspell 12:54 PM Balloon catheter removed intact. ell 12:55 PM HR=50 bpm, VBQJ=042/65 mmhg, SpO2=98.0 %, Resp=16 B/min, Comment=SIN[place] SHONNA 12:55 PM Time: 12:55 Nitroglycerin 200 mcg Intracoronary Given by Julio Petit MD ell 12:55 PM Time: 12:55 Aggrastat Bolus: 54 ml Intravenous Given by Ana Montez RN Ch[facility] pump ell 12:56 PM Time: 12:56 Aggrastat 12.5mg/250ml 9.4 ml Intravenous Given by Ana Montez RN Chong pump ell 12:56 PM At 12:56 the ACT was 248 seconds. dspell 12:56 PM Guide wire removed intact. 12:57 PM Guide catheter removed intact. 12:57 PM Procedure completed at 12:57 ell 12:58 PM Sign out completed: Radiation Dose 527.08 mGy Fluoro Time: 5.3 Isovue 370 - 200ml contrast 85 ml given by Julio Petit MD, [facility]. Complications: NoneCardiac Rehab Consult needed: YesConfirmed administered medications: Yes 12:58 PM Isovue 370 - 200ml,1 Bottle(s) used. 12:59 PM Sheath left in place to be pulled on floor/holding areaV+Pad dspell 12:59 PM Post ECG Sinus Bradycardia dspell 12:59 PM Post Blood Pressure 145/65 dspell 01:00 PM HR=54 bpm, HJVW=655/68 mmhg, SpO2=97.0 %, Resp=13 B/min, Comment=SINUS SHONNA 01:01 PM Information taught Cardiac Cath and PCI dspell 01:01 PM Education needs Procedure, Plan of Care, and Disease Process dspell 01:01 PM Learning barriers :None dspell 01: PM Education Methods Verbal dspell 01:01 PM Education evaluation Able to repeat information dspell:02 PM 13:01 Post Pulses Bilateral DP & PT 1+ dspell:02 PM Site status No bleeding/hematoma - Rt Groin as reported by Steven Curry RT (R) at 13:02 dspellman 01:02 PM Opsite applied dspelldebi 01:02 PM Complications: None dsptom 01:02 PM Fluoro Time: 5.3 dsptom 01:02 PM Isovue 370 - 200ml contrast 85 ml given by Julio Petit MD, [facility]. dsptom 01:05 PM Report given to Memory RN Pt taken to 2N Room #12. 13:05 dspelldebi 01:06 PM Family placed in consult room. dsptom 01:07 PM Time: 13:07 Plavix 600 mg Orally Given by Ana Montez RN Complications Complication None None Hemodynamics Pressures Site Systolic/A Wave Diastolic/V Wave Mean AO 122 49 74 AO 105 50 71 LV 124 5 21 LV 126 0 16 AO 114 36 63 AO 109 39 63 AO 128 47 76 Post Procedure Information Blood Pressure: 145/65 mmHg Rhythm: Sinus Bradycardia Post procedural instructions were given Closure Device Time Device Success/Fail 02/22/2017 1:06:00 PM Manual Compression Site Checks Time Location Status Staff Sheath In? Note 01:02 PM Rt Groin No bleeding/hematoma Steven Curry RT (R) Pulses Time Site Pre-Procedure Post-Procedure Note 1:01:00 PM Bilateral DP & PT 1+ Updated by RT Young (R) on 02/22/2017 1:12:54 PM RT Young electronically signed on 02/23/2017 11:49:19 AM with status of Final
--- NOTE | 2017-02-23 13:29 | Discharge Summary ---
Date of Encounter: 02/23/17 Time of Encounter: 09:40 - Discharge Diagnosis (1) HUSSAIN (acute kidney injury) Priority: Primary Status: Acute (2) NSTEMI (non-ST elevated myocardial infarction) Priority: Primary Status: Acute (3) CKD (chronic kidney disease), stage III Priority: Secondary Status: Chronic (4) Hypertension Priority: Secondary Status: Chronic Qualifiers: Hypertension type: essential hypertension Qualified Code(s): I10 - Essential (primary) hypertension - Discharge Medications Prescriptions: Aspirin 81 mg PO DAILY #30 tab.chew Atorvastatin [Lipitor] 80 mg PO HS #60 tablet Clopidogrel [Plavix] 75 mg PO DAILY #30 tablet Metoprolol [Lopressor] 12.5 mg PO BID #30 tablet Home Medications: Allopurinol [Zyloprim 100 MG] 200 mg PO DAILY 02/21/17 [History] Finasteride [Proscar] 5 mg PO DAILY 02/21/17 [History] Omeprazole [PriLOSEC] 20 mg PO DAILY 02/21/17 [History] Patiromer Calcium Sorbitex [Veltassa] 8.4 gm PO DAILY 02/21/17 [History] Aspirin 81 mg PO DAILY #30 tab.chew 02/23/17 [Rx] Atorvastatin [Lipitor] 80 mg PO HS #60 tablet 02/23/17 [Rx] Clopidogrel [Plavix] 75 mg PO DAILY #30 tablet 02/23/17 [Rx] Metoprolol [Lopressor] 12.5 mg PO BID #30 tablet 02/23/17 [Rx] Allergies/Adverse Reactions: 3 Allergy/AdvReac Type Severity Reaction Status Date / Time No Known Drug Allergies Allergy See Verified 02/21/17 00:46 Comments Procedures/tests Complete & Pending: Procedures Performed prior 72 hours Category Date Time Status CL Cardiac Catheterization [CL] Routine Breakdown Worker 02/22/17 10:34 Ordered US retroperitoneal comp [US] Routine Exams 02/23/17 08:30 Completed ECG 12 lead ECG [ECG] AM 0600 Y 02/21/17 06:00 Ordered EKG [ECG 12 lead ECG] [ECG] Stat Y 02/21/17 02:48 Completed EV echocardiogram w enhance Routine Y 02/21/17 09:42 Completed Date of admission: 02/21/17 03:36 Primary care physician: Corrine Jameson Consults: 02/21/17 03:48 Consult to Cardiology [CONS] Routine Comment: Consulting Provider: Sisi Hauser Reason for Consult: NSTEMI Call Completed: No 02/21/17 04:34 Consult to Nutrition [CONS] Routine Comment: Consulting Provider: NUTRITION Reason for Dietary Consult: MST Score Consult to Radiology Nurse [CONS] Routine Reason for SW Consult: home needs 02/21/17 09:29 Consult to Cardiac Rehabilitation-Phase1 [CONS] Routine Comment: Reason for Consult: NSTEMI Call Completed: No Consult to Nephrology [CONS] Routine Consulting Provider: Horacio Sauceda Reason for Consult: CKD, elevated trop, BNP Time Notified: 09:30 Call Completed: Yes Discharging clinician: Angela Aleman Anticipated date of discharge: 02/23/17 - Patient Status Disposition: Home Health Service Condition: Fair Functional capacity at discharge: independent ambulation Overall status at discharge: patient is progressing back to baseline - Discharge Instructions Instructions: Myocardial Infarction (DC), Acute Kidney Injury (DC), Anemia (DC) Follow Up With: Julio Petit MD [Partnered Physician] - (Cardiology office will call patient at home with an appointment) Corrine Jameson MD [Primary Care Provider] - 03/04/17 7:20 am () Additional Instructions: F/up with [facility] in 1-2 weeks F/up with PCP in 1-2 weeks - Diet and Activity Activity: as per the cardiac rehab, increase activity as tolerated Diet: low fat, low cholesterol, low salt diet Hospital course: Mr. Thayer is a 81 year old male with history of hypertension and chronic kidney disease was admitted with chest pain. Patient was noted to have elevated troponins with peak troponin at around 10. He was started on high dose aspirin , statin, beta tez , anticoagulation with IV heparin drip. Echocardiogram was done which showed preserved ejection fraction, mild concentric LVH and severe aortic stenosis. 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 He tolerated the procedure well and is noted to be doing well today. He was noted to have acute on chronic kidney injury at the time of admission, which improved with gentle IV hydration and Mucomyst, prior to left heart catheterization. Nephrology was consulted and agreed with this management, recommended to continue holding his home regimen of diuretic and ROSA inhibitor for now. Patient is currently medically stable for discharge with outpatient cardiology and nephrology follow-up. Home health services are being resumed. - Time Spent with Patient Total time spent providing and/or coordinating discharge services: Greater than 30 minutes (45 min) - Constitutional Vitals: Temp Pulse Resp BP Pulse Ox 98.5 F 55 20 130/62 98 02/23/17 11:14 02/23/17 11:14 02/23/17 11:14 02/23/17 11:14 02/23/17 11:14 General appearance: Present: A&O X 3, answers questions appropriately - Respiratory Respiratory exam: Present: CTAB. Absent: accessory muscle use, rales, rhonchi, wheezes - Cardiovascular Cardiovascular exam: Present: RRR, +S1, +S2, systolic murmur. Absent: diastolic murmur, gallop, rubs - VTE Documentation of Mechanical Device: Graduated compression elastic hosiery
--- NOTE | 2017-02-23 13:30 | Cardiology Progress Note ---
Date of Encounter: 02/23/17 Time of Encounter: 12:30 Assessment and Plan (1) NSTEMI (non-ST elevated myocardial infarction) Current Visit: Yes Status: Acute Per cardiology: -Presented to outside facility, initial troponin negative then 0.14 at outside facility. -Troponins at [place] 8.54, 9.57, 10.38. -Chest pain on presentation, currently chest pain free. 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 -On asa, statin, beta tez, and plavix. Educated on dual anti-platelet therapy uninterrupted for at least 30 days. Patient states understanding. -Right groin site education given to patient and daughter. -ECG with no acute ischemic changes. -No previous cardiac testing noted. -Echo read as severe aortic stenosis, however per discussion with , per cath aortic valve stenoosis probably mild. -Beta tez decreased due to HRs 40-50s (asymptomatic). -Cardiology will sign off and will follow in outpatient setting. Follow up set. (2) HUSSAIN (acute kidney injury) Current Visit: Yes Status: Acute Per cardiology: -Reports CKD, daughter states baseline creatinine normally around 1.4. -Creatinine at outside facility 2. -Creatinine at [place] 1.68. -Management per primary and nephrology services. Discussion w patient/family: The assessment and plan as outlined above was discussed with the patient and/or family members who expressed understanding and agreement. All questions were answered. Thank you for involving us in the care of your patient. Please call with any questions. Discussed and reviewed with . Subjective Principal diagnosis: NSTEMI Interval history: Patient states he feels fine today. Denies chest pain. Denies issues wit right leg. Objective Vital Signs, Last 4 Hours Temp Pulse Resp BP Pulse Ox 02/23/17 11:14 98.5 F 55 20 130/62 98 General: Conversant, No Apparent Distress HEENT: Atraumatic, Normocephaly, Mucus Membranes Moist Neck: No JVD, Normal carotid pulses Cardiac: Reg Rate and Rhythm, Normal S1 and S2, No Murmur Lungs: Normal Breath Sounds, No Wheeze, Rales, Rhonchi Neuro: Alert and responsive, No focal deficits noted Abdomen: Soft, Non-Tender Skin: No rashes noted on visualized skin, Other (Right groin access site without ecchymosis or hematoma. ) Musculoskeletal: No Chest Wall Tenderness Extremities: No Clubbing, No Cyanosis, No Edema, Normal Pulses Results 02/23/17 05:15 02/23/17 05:15 Lab Results Impressions Retroperitoneum Ultrasound 02/23/17 08:30 IMPRESSION: Findings as above consistent with medical renal disease. No hydronephrosis. 4.3 x 3.6 x 3.5 cm hypoechoic lesion arising from the inferior right kidney. Findings may represent a cyst, however evaluation is limited by bowel gas and poor penetration of sound. Recommend further evaluation with CT of the kidneys with contrast to assess for internal enhancing component. D/ / Samantha Burger MD / Samantha Burger MD Interpreting Provider: Samantha Burger MD Active Medications Acetaminophen (Tylenol) 650 mg PO Q6HR PRN PRN Reason: Mild Pain (1-3) Stop: 08/23/17 03:37 Acetylcysteine (Acetylcysteine 20%) 600 mg PO BID [facility] Stop: 02/24/17 11:16 Last Admin: 02/23/17 08:22 Dose: 600 mg Aspirin (Aspirin) 81 mg PO DAILY OANH Stop: 08/23/17 09:01 Last Admin: 02/23/17 07:54 Dose: 81 mg Atorvastatin Calcium (Lipitor) 80 mg PO HS OANH Stop: 08/23/17 03:46 Last Admin: 02/22/17 21:03 Dose: 80 mg Clopidogrel Bisulfate (Plavix) 75 mg PO DAILY OANH Stop: 08/25/17 09:01 Last Admin: 02/23/17 07:54 Dose: 75 mg Famotidine (Pepcid) 10 mg IVP Q12HR OANH Stop: 08/23/17 18:01 Last Admin: 02/23/17 06:02 Dose: 10 mg Hydroxyzine Pamoate (Hydroxyzine Pamoate) 25 mg PO TID OANH Stop: 08/23/17 09:46 Last Admin: 02/23/17 07:54 Dose: 25 mg Metoprolol Tartrate (Lopressor) 12.5 mg PO BID OANH Stop: 08/25/17 09:01 Morphine Sulfate (Morphine Sulfate) 2 mg IVP Q4HR PRN PRN Reason: Severe Pain (7-10) Stop: 08/23/17 03:37 Naloxone HCl (Narcan) 0.4 mg IVP Q2MIN PRN PRN Reason: Opioid Reversal Stop: 08/23/17 03:37 Ondansetron HCl (Zofran) 4 mg IVP Q8HR PRN PRN Reason: Nausea And Vomiting Stop: 08/23/17 03:37 Laboratory Tests 02/23/17 02/23/17 05:15 05:15 Hgb 10.2 L Creatinine 1.68 H - Imaging and Cardiology Chest Xray: report reviewed Echo: report reviewed Cardiac cath: report reviewed - EKG Interpretation EKG results cardiology: other (Telemetry reviewed with average HR previous 12 hours noted to be 49, sinus bradycardia.) - VTE Documentation of Mechanical Device: Graduated compression elastic hosiery Consult Discharge Plan - Plan Additional Instructions: F/up with [place] [facility] in 1-2 weeks F/up with PCP in 1-2 weeks Referrals: Corrine Jameson MD [Primary Care Provider] - 03/04/17 7:20 am () Prescriptions: Aspirin 81 mg PO DAILY #30 tab.chew Atorvastatin [Lipitor] 80 mg PO HS #60 tablet Clopidogrel [Plavix] 75 mg PO DAILY #30 tablet Metoprolol [Lopressor] 12.5 mg PO BID #30 tablet
--- NOTE | 2017-02-23 13:31 | Physician Discharge Referral ---
Home Health/Hosp Referral Info Transfer to: Home Health Attending Provider: Angela Aleman Provider in Charge Post Discharge: PCP - Diagnosis (1) HUSSAIN (acute kidney injury) Priority: Primary Status: Acute (2) NSTEMI (non-ST elevated myocardial infarction) Priority: Primary Status: Acute (3) CKD (chronic kidney disease), stage III Priority: Secondary Status: Chronic (4) Hypertension Priority: Secondary Status: Chronic - Respiratory Orders Smoking Cessation: Smoking cessation has been advised. For more information, call the [place] Tobacco Quit Line at 0-845-QUFZ-NOW. - Diet/Nutrition Diet/Nutrition Orders: No Added Salt (ROMAN), Renal, Cardiac - Activity Activity Orders: Ambulate - Services Needed Following services are medically necessary services: Nursing, Physical Therapy, Occupational Therapy - Transfer Medications Prescriptions: Aspirin 81 mg PO DAILY #30 tab.chew Atorvastatin [Lipitor] 80 mg PO HS #60 tablet Clopidogrel [Plavix] 75 mg PO DAILY #30 tablet Metoprolol [Lopressor] 12.5 mg PO BID #30 tablet Home Medications: Allopurinol [Zyloprim 100 MG] 200 mg PO DAILY 02/21/17 [History] Finasteride [Proscar] 5 mg PO DAILY 02/21/17 [History] Omeprazole [PriLOSEC] 20 mg PO DAILY 02/21/17 [History] Patiromer Calcium Sorbitex [Veltassa] 8.4 gm PO DAILY 02/21/17 [History] Aspirin 81 mg PO DAILY #30 tab.chew 02/23/17 [Rx] Atorvastatin [Lipitor] 80 mg PO HS #60 tablet 02/23/17 [Rx] Clopidogrel [Plavix] 75 mg PO DAILY #30 tablet 02/23/17 [Rx] Metoprolol [Lopressor] 12.5 mg PO BID #30 tablet 02/23/17 [Rx] Allergies/Adverse Reactions: 3 Allergy/AdvReac Type Severity Reaction Status Date / Time No Known Drug Allergies Allergy See Verified 02/21/17 00:46 Comments Certification: Further, I certify that my clinical findings support that this patient is homebound (i.e. absences from home require considerable and taxing effort and are for medical reasons or [facility] or infrequently or short duration when for other reasons) because: Homebound Reason: Patient requires assistance of a person or device to safely leave home, Leaving home requires considerable and taxing effort due to condition Attestation: My signature below is to certify that this patient is under my care and that I, or nurse practitioner, or a physician's drilling assistant working with me, has a face-to -face encounter with this patient.
== END 2017-02-23 16:10 | disposition home health service (06) | DRG 249 ==
LOC: 3BNU → SUATTDRO 02-21 03:36 → 2NNU 02-22 13:08
PROVIDERS: ADMIT Hospitalist; ATTEND Internal Medicine

== ENCOUNTER 2020-02-05 15:55 | Inpatient (IN) ==
[2020-02-05] MEDS ORDERED: Acetaminophen 325 MG TABLET PO PRN (22:37)
[2020-02-05] MEDS ORDERED: *HR* Promethazine 25 MG/ML VIAL IVP PRN (22:37)
[2020-02-05] MEDS ORDERED: Naloxone 0.4 MG/ML INJ IVP PRN (22:37)
[2020-02-05 23:04] LABS: INR 2.4; Prothrombin Time 27.5 Seconds (9.4-12.1)
[2020-02-05 23:08] LABS: Basophils % 0.2 %; Immature Granulocytes % 0.4 % (0-4); Red Cell Distribution Width 15.1 % (11.5-14.5)
[2020-02-05 23:10] LABS: Eosinophils # 0.2 K/mcL (0.0-0.6); Eosinophils % 3.4 %; Hematocrit 37.9 % (37.5-50.1); Hemoglobin 11.6 g/dL (12.9-16.9); Lymphocytes % 23.9 %; Mean Corpuscular HGB Conc 30.6 g/dL (31.6-35.5); Mean Corpuscular Hemoglobin 31.2 pg (28.0-33.3); Mean Corpuscular Volume 101.9 fL (83.0-100.0); Monocytes # 0.4 K/mcL (0.0-1.3); Monocytes % 7.3 %; Platelet Count 100 K/mcL (140-400); Red Blood Count 3.72 M/mcL (4.19-5.50); Segmented Neutrophils % 64.8 %; White Blood Count 5.6 K/mcL (4.3-11.1)
[2020-02-05 23:20] LABS: Albumin 3.2 g/dL (3.5-5.7); Albumin/Globulin Ratio 1.4 (1.1-2.2); Bilirubin,Total 1.3 mg/dL (0.3-1.0); Calcium 8.9 mg/dL (8.6-10.3); Chol/HDL Ratio 3.6 (0-4.9); Globulin 2.3 g/dL (2.4-3.5); Magnesium 2.1 mg/dL (1.6-2.6); Potassium 4.8 mEq/L (3.5-5.1); Total Protein 5.5 g/dL (6.4-8.9)
[2020-02-05] MEDS ORDERED: Nitroglycerin 0.4 MG TAB.SUBL SL PRN (23:39)
[2020-02-05 23:48] LABS: Troponin I 0.06 ng/mL (< 0.04)
[2020-02-06 00:07] LABS: Lymphocytes # 1.3 K/mcL (0.6-4.6); Neutrophils # 3.6 K/mcL (1.6-8.9)
[2020-02-06] MEDS ORDERED: Furosemide 20 MG/2 ML VIAL IVP ONE (01:08)
[2020-02-06 09:04] LABS: Troponin I 0.07 ng/mL (< 0.04)
[2020-02-06 09:45] LABS: Calcium 8.8 mg/dL (8.6-10.3); Potassium 4.4 mEq/L (3.5-5.1)
[2020-02-06 10:46] LABS: Folate 10.3 ng/mL (3.0-16.0)
[2020-02-06] MEDS ORDERED: Furosemide 20 MG/2 ML VIAL IVP SCH (12:00)
[2020-02-06] MEDS: Silvasorb 44.4 ML TUBE TP SCH (14:51)
[2020-02-06] MEDS ORDERED: *HR* Warfarin 4 MG TABLET PO ONE (18:00)
[2020-02-06] MEDS ORDERED: *HR* Warfarin 7.5 MG TABLET PO ONE (18:00)
[2020-02-06] MEDS ORDERED: Warfarin perPT PO PRN (18:00)
[2020-02-06] MEDS: Finasteride 5 MG TABLET PO SCH (20:19)
[2020-02-06] MEDS: Aspirin Enteric Coated 81 MG Tablet PO SCH (20:19)
[2020-02-06] MEDS: Furosemide 20 MG/2 ML VIAL IVP SCH (20:20)
[2020-02-06] MEDS: allopurinoL 100 MG TABLET PO SCH (20:22)
[2020-02-07 05:15] LABS: Basophils % 0.2 %; Hemoglobin 10.9 g/dL (12.9-16.9); Platelet Count 100 K/mcL (140-400)
[2020-02-07 05:17] LABS: Eosinophils # 0.3 K/mcL (0.0-0.6); Eosinophils % 5.7 %; Hematocrit 35.7 % (37.5-50.1); Immature Granulocytes % 0.3 % (0-4); Immature Platelets 15.1 % (1.1-6.1); Lymphocytes # 1.2 K/mcL (0.6-4.6); Lymphocytes % 21.4 %; Mean Corpuscular HGB Conc 30.5 g/dL (31.6-35.5); Mean Corpuscular Hemoglobin 31.1 pg (28.0-33.3); Mean Platelet Volume 13.7 fL (9.4-12.4); Monocytes # 0.5 K/mcL (0.0-1.3); Monocytes % 9.2 %; Red Cell Distribution Width 14.9 % (11.5-14.5); Segmented Neutrophils % 63.2 %; White Blood Count 5.8 K/mcL (4.3-11.1)
[2020-02-07 05:19] LABS: Prothrombin Time 23.1 Seconds (9.4-12.1)
[2020-02-07 05:23] LABS: Neutrophils # 3.7 K/mcL (1.6-8.9)
[2020-02-07 05:34] LABS: Calcium 8.8 mg/dL (8.6-10.3); Phosphorous 3.2 mg/dL (2.7-4.5); Potassium 4.9 mEq/L (3.5-5.1)
[2020-02-07 05:43] LABS: Platelet Estimate Slight Decrease (Normal)
[2020-02-07] MEDS: calcitrioL 0.25 MCG CAPSULE PO SCH (08:49)
[2020-02-07] MEDS: Furosemide 20 MG/2 ML VIAL IVP SCH ×4 (08:49→21:08)
[2020-02-07] MEDS: Silvasorb 44.4 ML TUBE TP SCH (08:59)
[2020-02-07 11:01] LABS: Estimated Average Glucose 120 mg/dl
[2020-02-07] MEDS ORDERED: *HR* Warfarin 4 MG TABLET PO ONE (18:00)
[2020-02-07] MEDS: Finasteride 5 MG TABLET PO SCH (21:08)
[2020-02-07] MEDS: Aspirin Enteric Coated 81 MG Tablet PO SCH (21:08)
[2020-02-07] MEDS: allopurinoL 100 MG TABLET PO SCH (21:09)
[2020-02-08 05:17] LABS: Basophils % 0.2 %; Hemoglobin 11.2 g/dL (12.9-16.9); Mean Corpuscular Hemoglobin 30.9 pg (28.0-33.3); Red Blood Count 3.62 M/mcL (4.19-5.50)
[2020-02-08 05:19] LABS: Eosinophils # 0.3 K/mcL (0.0-0.6); Eosinophils % 6.2 %; Hematocrit 36.5 % (37.5-50.1); Immature Granulocytes % 0.5 % (0-4); Immature Platelets 14.6 % (1.1-6.1); Lymphocytes # 1.2 K/mcL (0.6-4.6); Mean Corpuscular HGB Conc 30.7 g/dL (31.6-35.5); Mean Corpuscular Volume 100.8 fL (83.0-100.0); Mean Platelet Volume 13.6 fL (9.4-12.4); Monocytes # 0.6 K/mcL (0.0-1.3); Monocytes % 10.6 %; Neutrophils # 3.4 K/mcL (1.6-8.9); Platelet Count 104 K/mcL (140-400); Red Cell Distribution Width 14.9 % (11.5-14.5); Segmented Neutrophils % 61.5 %; White Blood Count 5.5 K/mcL (4.3-11.1)
[2020-02-08 05:29] LABS: INR 1.9
[2020-02-08 07:09] LABS: Magnesium 1.9 mg/dL (1.6-2.6)
[2020-02-08 07:11] LABS: Potassium 4.3 mEq/L (3.5-5.1)
[2020-02-08] MEDS: Furosemide 20 MG/2 ML VIAL IVP SCH (09:16)
[2020-02-08] MEDS: calcitrioL 0.25 MCG CAPSULE PO SCH (09:16)
[2020-02-08] MEDS: Silvasorb 44.4 ML TUBE TP SCH (09:17)
[2020-02-08] MEDS: Furosemide 20 MG TABLET PO SCH (17:06)
[2020-02-08] MEDS ORDERED: *HR* Warfarin 4 MG TABLET PO ONE (18:00)
[2020-02-08] MEDS: Aspirin Enteric Coated 81 MG Tablet PO SCH (22:20)
[2020-02-08] MEDS: allopurinoL 100 MG TABLET PO SCH (22:20)
[2020-02-08] MEDS: Finasteride 5 MG TABLET PO SCH (22:20)
[2020-02-09 01:54] LABS: Hematocrit 37.4 % (37.5-50.1); Hemoglobin 11.8 g/dL (12.9-16.9); Immature Platelets 14.5 % (1.1-6.1); Mean Corpuscular HGB Conc 31.6 g/dL (31.6-35.5); Mean Corpuscular Hemoglobin 31.4 pg (28.0-33.3); Mean Corpuscular Volume 99.5 fL (83.0-100.0); Mean Platelet Volume 13.6 fL (9.4-12.4); Red Blood Count 3.76 M/mcL (4.19-5.50); Red Cell Distribution Width 14.8 % (11.5-14.5); White Blood Count 5.5 K/mcL (4.3-11.1)
[2020-02-09 01:57] LABS: INR 1.7; Prothrombin Time 19.7 Seconds (9.4-12.1)
[2020-02-09 02:08] LABS: Calcium 8.9 mg/dL (8.6-10.3); Potassium 4.2 mEq/L (3.5-5.1)
[2020-02-09] MEDS: Furosemide 20 MG TABLET PO SCH ×2 (09:06→18:52)
[2020-02-09] MEDS: calcitrioL 0.25 MCG CAPSULE PO SCH (09:06)
[2020-02-09] MEDS: Silvasorb 44.4 ML TUBE TP SCH (09:07)
[2020-02-09] MEDS ORDERED: *HR* FentaNYL (PF) 100 MCG/2 ML VIAL ONE (16:49)
[2020-02-09] MEDS ORDERED: *HR* Midazolam HCl 2 MG/2 ML VIAL ONE (16:49)
[2020-02-09] MEDS ORDERED: 0.9 % Sodium Chloride 1,000 ML ONE (16:50)
[2020-02-09] MEDS ORDERED: 0.9 % Sodium Chloride 500 ML ONE (16:50)
[2020-02-09] MEDS: Finasteride 5 MG TABLET PO SCH (21:16)
[2020-02-09] MEDS: allopurinoL 100 MG TABLET PO SCH (21:17)
[2020-02-09] MEDS: Aspirin Enteric Coated 81 MG Tablet PO SCH (21:17)
[2020-02-10] MEDS: CeFAZolin 2 GM/120 ML BAG IVPB SCH ×2 (00:07→07:53)
[2020-02-10] MEDS: calcitrioL 0.25 MCG CAPSULE PO SCH (07:53)
[2020-02-10] MEDS: Furosemide 20 MG TABLET PO SCH (07:53)
[2020-02-10] MEDS: Silvasorb 44.4 ML TUBE TP SCH (07:53)
[2020-02-10 09:46] LABS: Hemoglobin 12.5 g/dL (12.9-16.9)
[2020-02-10 09:48] LABS: Hematocrit 40.8 % (37.5-50.1); Immature Platelets 14.3 % (1.1-6.1); Mean Corpuscular HGB Conc 30.6 g/dL (31.6-35.5); Mean Corpuscular Hemoglobin 30.9 pg (28.0-33.3); Mean Platelet Volume 13.8 fL (9.4-12.4); Red Blood Count 4.04 M/mcL (4.19-5.50); White Blood Count 4.8 K/mcL (4.3-11.1)
[2020-02-10 10:06] LABS: Potassium 4.2 mEq/L (3.5-5.1)
[2020-02-10 10:54] VITALS: BP 129/68
== END 2020-02-10 13:52 | disposition home health service (06) | DRG 242 ==
LOC: 3BNU → SUATTDRO 21:58
PROVIDERS: ADMIT Student in an Organized Health Care Education/Training Program; ATTEND Internal Medicine

== ENCOUNTER 2021-11-10 11:57 | Inpatient (IN) ==
[2021-11-10] MEDS ORDERED: Ondansetron 4 MG/2 ML VIAL IVP PRN (15:11)
[2021-11-10] MEDS ORDERED: Naloxone 0.4 MG/ML INJ IVP PRN (15:11)
[2021-11-10] MEDS ORDERED: Dextrose Gel 15 GM/37.5 ML TUBE PO PRN ×2 (15:34)
[2021-11-10] MEDS ORDERED: *HR* Dextrose 50 % in Water (Syg) 50 ML SYRINGE IVP PRN (15:34)
[2021-11-10] MEDS ORDERED: D5% in Water 1,000 ML IVC PRN (15:34)
[2021-11-10] MEDS: 0.9 % Sodium Chloride 1,000 ML IVC SCH (16:21)
[2021-11-10 16:57] LABS: Basophils % 0.4 %; Eosinophils # 0.1 K/mcL (0.0-0.6); Eosinophils % 3.1 %; Hematocrit 35.9 % (37.5-50.1); Immature Granulocytes % 0.7 % (0-4); Immature Platelets 17.1 % (1.1-6.1); Lymphocytes # 0.9 K/mcL (0.6-4.6); Lymphocytes % 19.9 %; Mean Corpuscular HGB Conc 30.6 g/dL (31.6-35.5); Mean Corpuscular Hemoglobin 31.8 pg (28.0-33.3); Mean Corpuscular Volume 103.8 fL (83.0-100.0); Mean Platelet Volume 13.5 fL (9.4-12.4); Monocytes # 0.5 K/mcL (0.0-1.3); Monocytes % 11.4 %; Neutrophils # 2.9 K/mcL (1.6-8.9); Platelet Count 106 K/mcL (140-400); Red Blood Count 3.46 M/mcL (4.19-5.50); Red Cell Distribution Width 17.2 % (11.5-14.5); Segmented Neutrophils % 64.5 %; White Blood Count 4.5 K/mcL (4.3-11.1)
[2021-11-10 17:02] LABS: Bilirubin,Urine Negative (Negative); Blood,Urine Negative (Negative); Clarity,Urine Clear (Clear); Color,Urine Yellow (Yellow); Glucose,Urine (UA) Normal (Normal); Ketones,Urine Negative (Negative); Leukocyte Esterase,Urine Negative (Negative); Nitrite,Urine Negative (Negative); Protein,Urine Trace mg/dL (Neg-Trace); Specific Gravity,Urine 1.023 (1.010-1.025)
[2021-11-10 17:02] LABS: INR 1.8; Prothrombin Time 19.5 Seconds (9.4-12.1)
[2021-11-10 17:17] LABS: Alanine Aminotransferase 13 Units/L (7-52); Albumin 2.9 g/dL (3.5-5.7); Albumin/Globulin Ratio 1.1 (1.1-2.2); Alkaline Phosphatase 132 Units/L (34-104); Aspartate Amino Transferase 19 Units/L (13-39); BUN/Creatinine Ratio 23 (6-26); Bilirubin,Total 1.3 mg/dL (0.3-1.0); Blood Urea Nitrogen 31 mg/dL (8-23); Calcium 9.6 mg/dL (8.6-10.3); Carbon Dioxide 32 mEq/L (23-29); Chloride 107 mEq/L (98-107); Globulin 2.6 g/dL (2.4-3.5); Glucose 76 mg/dL (70-105); Osmolality,Calculated 297 (280-300); Potassium 4.9 mEq/L (3.5-5.1); Sodium 141 mEq/L (136-145); Total Protein 5.5 g/dL (6.4-8.9); eGFR For African Americans > 60 (> 60); eGFR For Non-African Americans 50 (> 60)
[2021-11-10 17:21] LABS: Troponin I 0.05 ng/mL (< 0.04)
[2021-11-10 17:40] LABS: Folate 4.7 ng/mL (3.0-16.0)
[2021-11-10] MEDS ORDERED: *HR* Warfarin 2 MG TABLET PO ONE (18:00)
[2021-11-10] MEDS ORDERED: Warfarin perPT PO PRN (18:00)
[2021-11-10] MEDS: Divalproex Sodium 125 MG Sprinkle Capsule (DR) PO SCH (22:29)
[2021-11-10] MEDS: OLANZapine 5 MG TAB.RAPDIS PO SCH (22:29)
[2021-11-11] MEDS: 0.9 % Sodium Chloride 1,000 ML IVC SCH (03:18)
[2021-11-11 05:22] LABS: Basophils % 0.5 %; Hemoglobin 10.8 g/dL (12.9-16.9)
[2021-11-11 05:24] LABS: Eosinophils # 0.1 K/mcL (0.0-0.6); Eosinophils % 2.6 %; Hematocrit 35.4 % (37.5-50.1); Immature Granulocytes % 1.2 % (0-4); Lymphocytes # 0.7 K/mcL (0.6-4.6); Lymphocytes % 17.6 %; Mean Corpuscular HGB Conc 30.5 g/dL (31.6-35.5); Mean Corpuscular Hemoglobin 31.6 pg (28.0-33.3); Mean Corpuscular Volume 103.5 fL (83.0-100.0); Mean Platelet Volume 13.3 fL (9.4-12.4); Monocytes # 0.4 K/mcL (0.0-1.3); Monocytes % 9.5 %; Neutrophils # 2.9 K/mcL (1.6-8.9); Platelet Count 112 K/mcL (140-400); Red Blood Count 3.42 M/mcL (4.19-5.50); Red Cell Distribution Width 17.1 % (11.5-14.5); Segmented Neutrophils % 68.6 %; White Blood Count 4.2 K/mcL (4.3-11.1)
[2021-11-11 05:32] LABS: INR 1.7; Prothrombin Time 19.1 Seconds (9.4-12.1)
[2021-11-11 05:43] LABS: Albumin 2.7 g/dL (3.5-5.7); Calcium 9.3 mg/dL (8.6-10.3); Globulin 2.6 g/dL (2.4-3.5); Potassium 5.1 mEq/L (3.5-5.1); Total Protein 5.3 g/dL (6.4-8.9)
[2021-11-11] MEDS: Divalproex Sodium 125 MG Sprinkle Capsule (DR) PO SCH ×3 (09:11→22:23)
[2021-11-11] MEDS: allopurinoL 100 MG TABLET PO SCH ×2 (09:11→11:43)
[2021-11-11] MEDS: Isosorbide MONOnitrate (24 HR) 30 MG TAB.ER.24H PO SCH ×2 (09:11→11:42)
[2021-11-11] MEDS: Metoprolol XL (24 HR) Succ 25 MG TAB.ER.24H PO SCH ×2 (09:12→11:43)
[2021-11-11] MEDS: Finasteride 5 MG TABLET PO SCH ×2 (09:12→11:43)
[2021-11-11] MEDS ORDERED: 0.9 % Sodium Chloride 1,000 ML IVC SCH (11:13)
[2021-11-11] MEDS ORDERED: Acetaminophen 325 MG TABLET PO PRN (11:40)
[2021-11-11] MEDS ORDERED: Perflutren Lipid Microsphere 1.3 ML in 0.9 % Sodium Chloride 8.7 ML IVP PRN (13:27)
[2021-11-11] MEDS ORDERED: *HR* Warfarin 2.5 MG TABLET PO ONE (18:00)
[2021-11-11] MEDS: OLANZapine 5 MG TAB.RAPDIS PO SCH (22:23)
[2021-11-12] MEDS: Furosemide 20 MG/2 ML VIAL IVP SCH ×3 (02:51→17:51)
[2021-11-12 04:03] LABS: Prothrombin Time 21.9 Seconds (9.4-12.1)
[2021-11-12 04:04] LABS: Basophils % 0.5 %; Eosinophils # 0.1 K/mcL (0.0-0.6); Eosinophils % 2.3 %; Hematocrit 36.1 % (37.5-50.1); Hemoglobin 11.3 g/dL (12.9-16.9); Immature Granulocytes % 0.7 % (0-4); Lymphocytes % 21.4 %; Mean Corpuscular HGB Conc 31.3 g/dL (31.6-35.5); Mean Corpuscular Volume 102.3 fL (83.0-100.0); Mean Platelet Volume 13.7 fL (9.4-12.4); Monocytes # 0.4 K/mcL (0.0-1.3); Monocytes % 7.9 %; Platelet Count 142 K/mcL (140-400); Red Blood Count 3.53 M/mcL (4.19-5.50); Red Cell Distribution Width 17.1 % (11.5-14.5); Segmented Neutrophils % 67.2 %; White Blood Count 4.4 K/mcL (4.3-11.1)
[2021-11-12 04:16] LABS: BUN/Creatinine Ratio 23 (6-26); Blood Urea Nitrogen 31 mg/dL (8-23); Calcium 9.4 mg/dL (8.6-10.3); Carbon Dioxide 26 mEq/L (23-29); Chloride 107 mEq/L (98-107); Glucose 84 mg/dL (70-105); Magnesium 1.9 mg/dL (1.6-2.6); Osmolality,Calculated 294 (280-300); Potassium 4.8 mEq/L (3.5-5.1); Sodium 139 mEq/L (136-145); eGFR For African Americans > 60 (> 60); eGFR For Non-African Americans 51 (> 60)
[2021-11-12] MEDS: Divalproex Sodium 125 MG Sprinkle Capsule (DR) PO SCH ×2 (09:21→21:14)
[2021-11-12] MEDS: Metoprolol XL (24 HR) Succ 25 MG TAB.ER.24H PO SCH (09:21)
[2021-11-12] MEDS: allopurinoL 100 MG TABLET PO SCH (09:21)
[2021-11-12] MEDS: Isosorbide MONOnitrate (24 HR) 30 MG TAB.ER.24H PO SCH (09:21)
[2021-11-12] MEDS: Finasteride 5 MG TABLET PO SCH (09:21)
[2021-11-12 09:55] LABS: Thyroid Stimulating Hormone 5.501 mcIU/mL (0.340-5.600)
[2021-11-12] MEDS ORDERED: *HR* Warfarin 2 MG TABLET PO ONE (18:00)
[2021-11-12] MEDS: OLANZapine 5 MG TAB.RAPDIS PO SCH (21:14)
[2021-11-12] MEDS ORDERED: QUEtiapine Fumarate 25 MG TABLET PO PRN (23:34)
[2021-11-13] MEDS ORDERED: Haloperidol Lactate 5 MG/ML VIAL IVP ONE ×2 (00:06→22:04)
[2021-11-13 03:30] LABS: INR 2.6; Prothrombin Time 29.2 Seconds (9.4-12.1)
[2021-11-13 03:41] LABS: BUN/Creatinine Ratio 24 (6-26); Blood Urea Nitrogen 31 mg/dL (8-23); Calcium 9.3 mg/dL (8.6-10.3); Carbon Dioxide 29 mEq/L (23-29); Chloride 107 mEq/L (98-107); Glucose 104 mg/dL (70-105); Magnesium 1.8 mg/dL (1.6-2.6); Osmolality,Calculated 301 (280-300); Potassium 4.2 mEq/L (3.5-5.1); Sodium 142 mEq/L (136-145); eGFR For African Americans > 60 (> 60); eGFR For Non-African Americans 53 (> 60)
[2021-11-13] MEDS: Furosemide 20 MG/2 ML VIAL IVP SCH ×2 (08:10→17:14)
[2021-11-13] MEDS: Isosorbide MONOnitrate (24 HR) 30 MG TAB.ER.24H PO SCH (09:59)
[2021-11-13] MEDS: allopurinoL 100 MG TABLET PO SCH (09:59)
[2021-11-13] MEDS: Divalproex Sodium 125 MG Sprinkle Capsule (DR) PO SCH ×2 (09:59→21:47)
[2021-11-13] MEDS: Metoprolol XL (24 HR) Succ 25 MG TAB.ER.24H PO SCH (09:59)
[2021-11-13] MEDS: Finasteride 5 MG TABLET PO SCH (09:59)
[2021-11-13 10:08] LABS: Hematocrit 35.9 % (37.5-50.1); Hemoglobin 11.5 g/dL (12.9-16.9); Mean Corpuscular Hemoglobin 31.9 pg (28.0-33.3); Mean Corpuscular Volume 99.7 fL (83.0-100.0); Mean Platelet Volume 12.5 fL (9.4-12.4); Platelet Count 140 K/mcL (140-400); Red Cell Distribution Width 16.7 % (11.5-14.5); White Blood Count 3.4 K/mcL (4.3-11.1)
[2021-11-13] MEDS ORDERED: *HR* Warfarin 2 MG TABLET PO ONE (18:00)
[2021-11-13] MEDS: OLANZapine 5 MG TAB.RAPDIS PO SCH (21:51)
[2021-11-14] MEDS ORDERED: Pantoprazole 40 MG VIAL IVP ONE (05:45)
[2021-11-14 08:58] LABS: Hematocrit 34.6 % (37.5-50.1); Hemoglobin 10.8 g/dL (12.9-16.9); Mean Corpuscular HGB Conc 31.2 g/dL (31.6-35.5); Mean Corpuscular Hemoglobin 31.8 pg (28.0-33.3); Mean Corpuscular Volume 101.8 fL (83.0-100.0); Mean Platelet Volume 12.6 fL (9.4-12.4); Platelet Count 122 K/mcL (140-400); Red Cell Distribution Width 16.6 % (11.5-14.5)
[2021-11-14 09:10] LABS: BUN/Creatinine Ratio 23 (6-26); Blood Urea Nitrogen 31 mg/dL (8-23); Calcium 9.2 mg/dL (8.6-10.3); Carbon Dioxide 30 mEq/L (23-29); Chloride 106 mEq/L (98-107); Glucose 78 mg/dL (70-105); Osmolality,Calculated 297 (280-300); Potassium 4.2 mEq/L (3.5-5.1); Sodium 141 mEq/L (136-145); eGFR For African Americans > 60 (> 60); eGFR For Non-African Americans 50 (> 60)
[2021-11-14 09:11] LABS: INR 2.8; Prothrombin Time 31.2 Seconds (9.4-12.1)
[2021-11-14 09:12] LABS: Magnesium 1.8 mg/dL (1.6-2.6)
[2021-11-14 10:21] LABS: Albumin 2.9 g/dL (3.5-5.7); Albumin/Globulin Ratio 1.2 (1.1-2.2); Bilirubin,Direct 0.1 mg/dL (0.0-0.2); Bilirubin,Indirect 0.8 mg/dL (0.0-1.0); Bilirubin,Total 0.9 mg/dL (0.3-1.0); Globulin 2.5 g/dL (2.4-3.5); Thyroid Stimulating Hormone 5.273 mcIU/mL (0.340-5.600); Total Protein 5.4 g/dL (6.4-8.9); Triiodothyronine (T3) Free 3.05 pg/mL (2.50-3.90)
[2021-11-14] MEDS: Furosemide 20 MG TABLET PO SCH (17:25)
[2021-11-14] MEDS: Finasteride 5 MG TABLET PO SCH (17:58)
[2021-11-14] MEDS: Isosorbide MONOnitrate (24 HR) 30 MG TAB.ER.24H PO SCH (17:58)
[2021-11-14] MEDS: allopurinoL 100 MG TABLET PO SCH (17:58)
[2021-11-14] MEDS: Metoprolol XL (24 HR) Succ 25 MG TAB.ER.24H PO SCH (17:58)
[2021-11-14] MEDS: Furosemide 20 MG/2 ML VIAL IVP SCH (17:59)
[2021-11-14] MEDS ORDERED: *HR* Warfarin 1 MG TABLET PO ONE (18:00)
[2021-11-14] MEDS: Divalproex Sodium 125 MG Sprinkle Capsule (DR) PO SCH (22:09)
[2021-11-14] MEDS: OLANZapine 5 MG TAB.RAPDIS PO SCH (22:09)
[2021-11-15 06:20] LABS: Hemoglobin 11.1 g/dL (12.9-16.9); Red Cell Distribution Width 16.7 % (11.5-14.5)
[2021-11-15 06:21] LABS: Hematocrit 35.3 % (37.5-50.1); Immature Platelets 12.5 % (1.1-6.1); Mean Corpuscular HGB Conc 31.4 g/dL (31.6-35.5); Mean Corpuscular Volume 101.7 fL (83.0-100.0); Mean Platelet Volume 12.8 fL (9.4-12.4); Red Blood Count 3.47 M/mcL (4.19-5.50); White Blood Count 3.9 K/mcL (4.3-11.1)
[2021-11-15 06:26] LABS: INR 2.8; Prothrombin Time 31.2 Seconds (9.4-12.1)
[2021-11-15 06:40] LABS: Calcium 9.2 mg/dL (8.6-10.3); Potassium 4.2 mEq/L (3.5-5.1)
[2021-11-15] MEDS: Isosorbide MONOnitrate (24 HR) 30 MG TAB.ER.24H PO SCH (08:03)
[2021-11-15] MEDS: Divalproex Sodium 125 MG Sprinkle Capsule (DR) PO SCH ×2 (08:03→21:12)
[2021-11-15] MEDS: allopurinoL 100 MG TABLET PO SCH (08:03)
[2021-11-15] MEDS: Metoprolol XL (24 HR) Succ 25 MG TAB.ER.24H PO SCH (08:03)
[2021-11-15] MEDS: Finasteride 5 MG TABLET PO SCH (08:04)
[2021-11-15] MEDS: Furosemide 20 MG TABLET PO SCH ×2 (08:04→16:44)
[2021-11-15] MEDS ORDERED: *HR* Warfarin 2 MG TABLET PO ONE (18:00)
[2021-11-15] MEDS: OLANZapine 5 MG TAB.RAPDIS PO SCH (21:12)
[2021-11-16 06:40] LABS: INR 2.6; Prothrombin Time 28.3 Seconds (9.4-12.1)
[2021-11-16 08:27] LABS: Hematocrit 34.1 % (37.5-50.1); Hemoglobin 10.8 g/dL (12.9-16.9); Immature Granulocytes % 0.8 % (0-4); Mean Corpuscular HGB Conc 31.7 g/dL (31.6-35.5)
[2021-11-16 08:29] LABS: Basophils % 0.3 %; Eosinophils # 0.1 K/mcL (0.0-0.6); Eosinophils % 3.5 %; Immature Platelets 13.1 % (1.1-6.1); Lymphocytes # 1.2 K/mcL (0.6-4.6); Lymphocytes % 31.3 %; Mean Corpuscular Volume 100.9 fL (83.0-100.0); Mean Platelet Volume 12.7 fL (9.4-12.4); Monocytes # 0.4 K/mcL (0.0-1.3); Monocytes % 9.4 %; Platelet Count 126 K/mcL (140-400); Red Blood Count 3.38 M/mcL (4.19-5.50); Red Cell Distribution Width 16.5 % (11.5-14.5); Segmented Neutrophils % 54.7 %; White Blood Count 3.7 K/mcL (4.3-11.1)
[2021-11-16 08:44] LABS: BUN/Creatinine Ratio 24 (6-26); Blood Urea Nitrogen 32 mg/dL (8-23); Carbon Dioxide 33 mEq/L (23-29); Chloride 104 mEq/L (98-107); Glucose 83 mg/dL (70-105); Magnesium 1.9 mg/dL (1.6-2.6); Osmolality,Calculated 298 (280-300); Potassium 4.2 mEq/L (3.5-5.1); Sodium 141 mEq/L (136-145); eGFR For African Americans > 60 (> 60); eGFR For Non-African Americans 51 (> 60)
[2021-11-16] MEDS: allopurinoL 100 MG TABLET PO SCH (08:50)
[2021-11-16] MEDS: Finasteride 5 MG TABLET PO SCH (08:50)
[2021-11-16] MEDS: Isosorbide MONOnitrate (24 HR) 30 MG TAB.ER.24H PO SCH (08:50)
[2021-11-16] MEDS: Divalproex Sodium 125 MG Sprinkle Capsule (DR) PO SCH ×2 (08:50→21:40)
[2021-11-16] MEDS: Metoprolol XL (24 HR) Succ 25 MG TAB.ER.24H PO SCH (08:50)
[2021-11-16] MEDS: Furosemide 20 MG TABLET PO SCH (08:50)
[2021-11-16] MEDS ORDERED: *HR* Warfarin 2 MG TABLET PO ONE (18:00)
[2021-11-16] MEDS: OLANZapine 5 MG TAB.RAPDIS PO SCH (21:41)
[2021-11-17 05:57] LABS: INR 2.8; Prothrombin Time 31.2 Seconds (9.4-12.1)
[2021-11-17] MEDS: Finasteride 5 MG TABLET PO SCH (07:52)
[2021-11-17] MEDS: Divalproex Sodium 125 MG Sprinkle Capsule (DR) PO SCH (07:52)
[2021-11-17] MEDS: Metoprolol XL (24 HR) Succ 25 MG TAB.ER.24H PO SCH (07:52)
[2021-11-17] MEDS: allopurinoL 100 MG TABLET PO SCH (07:52)
[2021-11-17] MEDS: Isosorbide MONOnitrate (24 HR) 30 MG TAB.ER.24H PO SCH (07:52)
[2021-11-17] MEDS: Furosemide 20 MG TABLET PO SCH (07:53)
[2021-11-17] MEDS ORDERED: *HR* Warfarin 2 MG TABLET PO ONE (18:00)
[2021-11-18] MEDS: OLANZapine 5 MG TAB.RAPDIS PO SCH ×2 (00:18→21:36)
[2021-11-18] MEDS: Divalproex Sodium 125 MG Sprinkle Capsule (DR) PO SCH ×3 (00:18→21:36)
[2021-11-18 07:23] LABS: INR 2.7; Prothrombin Time 29.8 Seconds (9.4-12.1)
[2021-11-18] MEDS: Metoprolol XL (24 HR) Succ 25 MG TAB.ER.24H PO SCH (11:06)
[2021-11-18] MEDS: Finasteride 5 MG TABLET PO SCH (11:06)
[2021-11-18] MEDS: Furosemide 20 MG TABLET PO SCH (11:06)
[2021-11-18] MEDS: allopurinoL 100 MG TABLET PO SCH (11:06)
[2021-11-18] MEDS: Isosorbide MONOnitrate (24 HR) 30 MG TAB.ER.24H PO SCH (11:06)
[2021-11-18] MEDS ORDERED: *HR* Warfarin 2 MG TABLET PO ONE (18:00)
[2021-11-19] MEDS: Isosorbide MONOnitrate (24 HR) 30 MG TAB.ER.24H PO SCH (07:55)
[2021-11-19] MEDS: Metoprolol XL (24 HR) Succ 25 MG TAB.ER.24H PO SCH (07:56)
[2021-11-19 07:59] LABS: INR 2.3; Prothrombin Time 25.3 Seconds (9.4-12.1)
[2021-11-19] MEDS: Finasteride 5 MG TABLET PO SCH (08:04)
[2021-11-19] MEDS: Furosemide 20 MG TABLET PO SCH (08:04)
[2021-11-19] MEDS: Divalproex Sodium 125 MG Sprinkle Capsule (DR) PO SCH ×2 (08:04→22:09)
[2021-11-19] MEDS: allopurinoL 100 MG TABLET PO SCH (08:08)
[2021-11-19] MEDS ORDERED: *HR* Warfarin 2 MG TABLET PO ONE (18:00)
[2021-11-19] MEDS: OLANZapine 5 MG TAB.RAPDIS PO SCH (22:09)
[2021-11-20 09:31] LABS: INR 2.4; Prothrombin Time 26.3 Seconds (9.4-12.1)
[2021-11-20] MEDS: Metoprolol XL (24 HR) Succ 25 MG TAB.ER.24H PO SCH (10:15)
[2021-11-20] MEDS: Divalproex Sodium 125 MG Sprinkle Capsule (DR) PO SCH ×2 (10:17→20:32)
[2021-11-20] MEDS: Furosemide 20 MG TABLET PO SCH (10:17)
[2021-11-20] MEDS: Finasteride 5 MG TABLET PO SCH (10:17)
[2021-11-20] MEDS: allopurinoL 100 MG TABLET PO SCH (10:18)
[2021-11-20] MEDS ORDERED: Ringers Solution, Lactated 1,000 ML IVC SCH (15:15)
[2021-11-20 16:35] LABS: Alanine Aminotransferase 10 Units/L (7-52); Albumin 2.9 g/dL (3.5-5.7); Albumin/Globulin Ratio 1.2 (1.1-2.2); Alkaline Phosphatase 126 Units/L (34-104); Aspartate Amino Transferase 19 Units/L (13-39); BUN/Creatinine Ratio 27 (6-26); Blood Urea Nitrogen 33 mg/dL (8-23); Calcium 9.2 mg/dL (8.6-10.3); Carbon Dioxide 33 mEq/L (23-29); Chloride 104 mEq/L (98-107); Globulin 2.4 g/dL (2.4-3.5); Glucose 79 mg/dL (70-105); Osmolality,Calculated 296 (280-300); Potassium 4.6 mEq/L (3.5-5.1); Sodium 140 mEq/L (136-145); Total Protein 5.3 g/dL (6.4-8.9); eGFR For African Americans > 60 (> 60); eGFR For Non-African Americans 56 (> 60)
[2021-11-20 16:43] LABS: Basophils % 0.3 %; Eosinophils # 0.1 K/mcL (0.0-0.6); Eosinophils % 3.2 %; Hemoglobin 10.7 g/dL (12.9-16.9); Immature Granulocytes % 0.5 % (0-4); Immature Platelets 14.2 % (1.1-6.1); Lymphocytes # 1.2 K/mcL (0.6-4.6); Lymphocytes % 33.1 %; Mean Corpuscular HGB Conc 31.5 g/dL (31.6-35.5); Mean Corpuscular Hemoglobin 31.7 pg (28.0-33.3); Mean Corpuscular Volume 100.6 fL (83.0-100.0); Mean Platelet Volume 13.5 fL (9.4-12.4); Monocytes # 0.3 K/mcL (0.0-1.3); Monocytes % 8.5 %; Platelet Count 132 K/mcL (140-400); Red Blood Count 3.38 M/mcL (4.19-5.50); Red Cell Distribution Width 16.5 % (11.5-14.5); Segmented Neutrophils % 54.4 %; White Blood Count 3.8 K/mcL (4.3-11.1)
[2021-11-20] MEDS ORDERED: *HR* Warfarin 2 MG TABLET PO ONE (18:00)
[2021-11-20] MEDS: OLANZapine 5 MG TAB.RAPDIS PO SCH (20:32)
[2021-11-21 06:18] LABS: INR 2.1; Prothrombin Time 23.1 Seconds (9.4-12.1)
[2021-11-21] MEDS: Finasteride 5 MG TABLET PO SCH (08:24)
[2021-11-21] MEDS: Furosemide 20 MG TABLET PO SCH (08:24)
[2021-11-21] MEDS: allopurinoL 100 MG TABLET PO SCH (08:24)
[2021-11-21] MEDS: Divalproex Sodium 125 MG Sprinkle Capsule (DR) PO SCH ×2 (08:24→22:07)
[2021-11-21] MEDS: Metoprolol XL (24 HR) Succ 25 MG TAB.ER.24H PO SCH (08:24)
[2021-11-21] MEDS ORDERED: *HR* Warfarin 2.5 MG TABLET PO ONE (18:00)
[2021-11-21] MEDS: OLANZapine 5 MG TAB.RAPDIS PO SCH (22:07)
[2021-11-22 02:26] LABS: Basophils % 0.4 %; Eosinophils % 3.2 %; Red Cell Distribution Width 16.6 % (11.5-14.5)
[2021-11-22 02:28] LABS: Eosinophils # 0.2 K/mcL (0.0-0.6); Hematocrit 34.1 % (37.5-50.1); Hemoglobin 10.8 g/dL (12.9-16.9); Immature Platelets 14.1 % (1.1-6.1); Lymphocytes # 1.1 K/mcL (0.6-4.6); Lymphocytes % 21.2 %; Mean Corpuscular HGB Conc 31.7 g/dL (31.6-35.5); Mean Corpuscular Hemoglobin 32.3 pg (28.0-33.3); Mean Corpuscular Volume 102.1 fL (83.0-100.0); Mean Platelet Volume 12.7 fL (9.4-12.4); Monocytes # 0.5 K/mcL (0.0-1.3); Neutrophils # 3.3 K/mcL (1.6-8.9); Platelet Count 118 K/mcL (140-400); Red Blood Count 3.34 M/mcL (4.19-5.50); Segmented Neutrophils % 65.2 %
[2021-11-22 02:33] LABS: INR 2.1; Prothrombin Time 23.8 Seconds (9.4-12.1)
[2021-11-22 02:53] LABS: Alanine Aminotransferase 11 Units/L (7-52); Albumin 2.8 g/dL (3.5-5.7); Alkaline Phosphatase 122 Units/L (34-104); Aspartate Amino Transferase 18 Units/L (13-39); BUN/Creatinine Ratio 28 (6-26); Bilirubin,Total 0.8 mg/dL (0.3-1.0); Blood Urea Nitrogen 34 mg/dL (8-23); Carbon Dioxide 33 mEq/L (23-29); Chloride 102 mEq/L (98-107); Globulin 2.8 g/dL (2.4-3.5); Glucose 90 mg/dL (70-105); Osmolality,Calculated 297 (280-300); Potassium 4.6 mEq/L (3.5-5.1); Sodium 140 mEq/L (136-145); Total Protein 5.6 g/dL (6.4-8.9); eGFR For African Americans > 60 (> 60); eGFR For Non-African Americans 57 (> 60)
[2021-11-22] MEDS: allopurinoL 100 MG TABLET PO SCH (09:32)
[2021-11-22] MEDS: Furosemide 20 MG TABLET PO SCH (09:33)
[2021-11-22] MEDS: Divalproex Sodium 125 MG Sprinkle Capsule (DR) PO SCH ×2 (09:33→20:02)
[2021-11-22] MEDS: Metoprolol XL (24 HR) Succ 25 MG TAB.ER.24H PO SCH (09:33)
[2021-11-22] MEDS: Finasteride 5 MG TABLET PO SCH (09:33)
[2021-11-22 11:24] LABS: Bilirubin,Urine Negative (Negative); Blood,Urine Negative (Negative); Clarity,Urine Clear (Clear); Color,Urine Yellow (Yellow); Glucose,Urine (UA) Normal (Normal); Ketones,Urine Negative (Negative); Leukocyte Esterase,Urine Negative (Negative); Nitrite,Urine Negative (Negative); Protein,Urine Trace mg/dL (Neg-Trace); Specific Gravity,Urine 1.016 (1.010-1.025)
[2021-11-22] MEDS ORDERED: *HR* Warfarin 2.5 MG TABLET PO ONE (18:00)
[2021-11-22] MEDS: OLANZapine 5 MG TAB.RAPDIS PO SCH (20:02)
[2021-11-23] MEDS: Metoprolol XL (24 HR) Succ 25 MG TAB.ER.24H PO SCH (09:17)
[2021-11-23] MEDS: Finasteride 5 MG TABLET PO SCH (09:17)
[2021-11-23] MEDS: Furosemide 20 MG TABLET PO SCH (09:17)
[2021-11-23] MEDS: allopurinoL 100 MG TABLET PO SCH (09:17)
[2021-11-23] MEDS: Divalproex Sodium 125 MG Sprinkle Capsule (DR) PO SCH ×2 (09:17→21:19)
[2021-11-23 12:31] LABS: INR 2.1; Prothrombin Time 23.2 Seconds (9.4-12.1)
[2021-11-23] MEDS ORDERED: *HR* Warfarin 2.5 MG TABLET PO ONE (18:00)
[2021-11-23] MEDS: OLANZapine 5 MG TAB.RAPDIS PO SCH (21:19)
[2021-11-24 02:06] LABS: INR 2.2; Prothrombin Time 24.7 Seconds (9.4-12.1)
[2021-11-24] MEDS: allopurinoL 100 MG TABLET PO SCH (09:31)
[2021-11-24] MEDS: Furosemide 20 MG TABLET PO SCH (09:31)
[2021-11-24] MEDS: Divalproex Sodium 125 MG Sprinkle Capsule (DR) PO SCH ×2 (09:31→22:27)
[2021-11-24] MEDS: Metoprolol XL (24 HR) Succ 25 MG TAB.ER.24H PO SCH (09:31)
[2021-11-24] MEDS: Finasteride 5 MG TABLET PO SCH (09:31)
[2021-11-24] MEDS ORDERED: *HR* Warfarin 2.5 MG TABLET PO ONE (18:00)
[2021-11-24] MEDS: OLANZapine 5 MG TAB.RAPDIS PO SCH (22:26)
[2021-11-25] MEDS: Furosemide 20 MG TABLET PO SCH (08:58)
[2021-11-25] MEDS: Divalproex Sodium 125 MG Sprinkle Capsule (DR) PO SCH ×2 (08:58→20:37)
[2021-11-25] MEDS: allopurinoL 100 MG TABLET PO SCH (08:59)
[2021-11-25] MEDS: Metoprolol XL (24 HR) Succ 25 MG TAB.ER.24H PO SCH (08:59)
[2021-11-25] MEDS: Finasteride 5 MG TABLET PO SCH (08:59)
[2021-11-25 11:22] LABS: INR 2.5; Prothrombin Time 27.2 Seconds (9.4-12.1)
[2021-11-25] MEDS ORDERED: *HR* Warfarin 2 MG TABLET PO ONE (18:00)
[2021-11-25] MEDS: OLANZapine 5 MG TAB.RAPDIS PO SCH (20:37)
[2021-11-26] MEDS: Divalproex Sodium 125 MG Sprinkle Capsule (DR) PO SCH (08:13)
[2021-11-26] MEDS: Finasteride 5 MG TABLET PO SCH (08:13)
[2021-11-26] MEDS: Metoprolol XL (24 HR) Succ 25 MG TAB.ER.24H PO SCH (08:13)
[2021-11-26] MEDS: allopurinoL 100 MG TABLET PO SCH (08:13)
[2021-11-26] MEDS: Furosemide 20 MG TABLET PO SCH (08:13)
[2021-11-26 08:23] VITALS: O2SAT 96
[2021-11-26 10:07] LABS: INR 2.4; Prothrombin Time 26.7 Seconds (9.4-12.1)
[2021-11-26 13:05] VITALS: BP 108/70; PULSE 61; TEMP 97.4
[2021-11-26] MEDS ORDERED: *HR* Warfarin 2 MG TABLET PO ONE (18:00)
== END 2021-11-26 14:49 | disposition home or self-care (01) | DRG 291 ==
LOC: 3ANU → SUATTDRO 14:21
PROVIDERS: ADMIT Student in an Organized Health Care Education/Training Program; ATTEND Internal Medicine